=== PATIENT | female | born 1995 | race Caucasian/White ===

== ENCOUNTER 2019-08-24 10:32 | Emergency (ER) | payer OTHER ==
[~2019-08-24] VITALS: Ht 157.5 cm; Wt 63.3 kg
[2019-08-24 11:10] LABS: BASO % 0.5 % (0.0-1.0); EOS % 0.5 % (0.0-3.0); HEMATOCRIT 35.6 % (36.0-47.0); HEMOGLOBIN 12.2 g/dl (12.0-15.5); LYMPH # 1.4 10^3/uL (1.5-5.0); LYMPH % 31.2 % (24.0-44.0); MEAN CORPUSCULAR HEMOGLOBIN 31.2 pg (27.0-33.0); MEAN CORPUSCULAR HGB CONC 34.3 g/dl (32.0-36.5); MONO # 0.7 10^3/uL (0.0-0.8); MONO % 14.9 % (0.0-5.0); NEUTROPHILS # 2.3 10^3/uL (1.5-8.5); NEUTROPHILS % 52.7 % (36.0-66.0); PLATELET COUNT, AUTOMATED 200 10^3/uL (150-450); RED BLOOD COUNT 3.91 10^6/uL (4.00-5.40); WHITE BLOOD COUNT 4.4 10^3/uL (4.0-10.0)
[2019-08-24] MEDS ORDERED: B-122500 PO (11:21)
[2019-08-24] MEDS ORDERED: PEPC1TAB5 PO (11:21)
[2019-08-24] MEDS ORDERED: PRENTAB53 PO (11:21)
[2019-08-24] MEDS ORDERED: PREN29TA4 PO (11:21)
[2019-08-24] MEDS ORDERED: VITA200012 PO (11:21)
[2019-08-24] MEDS ORDERED: MULTCAP PO (11:23)
--- NOTE | 2019-08-24 11:44 | REP ---
Emergency first trimester obstetric sonography: History: Vaginal bleeding. 6 weeks 1 day by dates. Findings: Transabdominal scanning demonstrates a single living intrauterine gestation in a free-floating lie. The embryonic pole measures 9 mm in crown-rump length. This corresponds with a gestational age estimate of 6 weeks 6 days. heart rate is recorded at 124 beats per minute. A 1 cm fluid collection is seen adjacent to the sac consistent with a small subchorionic hemorrhage. There is a 2.6 cm corpus luteum cyst in the right ovary. Impression: Viable single intrauterine gestation at 6 weeks 6 days by crown-rump length. DOROTA by sonography April 12, 2020. There is a 1.0 cm subchorionic fluid collection consistent with a small hemorrhage. Electronically Signed by Kwame Andre MD 08/24/2019 12:41 P
[2019-08-24 12:00] LABS: ALBUMIN 3.7 GM/DL (3.2-5.2); ALT/SGPT 17 U/L (12-78); BILIRUBIN,TOTAL 0.5 MG/DL (0.2-1.0); BLOOD UREA NITROGEN 15 MG/DL (7-18); CALCIUM LEVEL 9.1 MG/DL (8.5-10.1); CARBON DIOXIDE LEVEL 25 MEQ/L (21-32); CHLORIDE LEVEL 108 MEQ/L (98-107); CREATININE FOR GFR 0.61 MG/DL (0.55-1.30); GLOMERULAR FILTRATION RATE > 60.0 (>60); GLUCOSE, FASTING 76 MG/DL (70-100); HCG, SERUM QUANTITATIVE 76994 MIU/ML; POTASSIUM SERUM 3.4 MEQ/L (3.5-5.1); SODIUM LEVEL 141 MEQ/L (136-145); TOTAL PROTEIN 6.6 GM/DL (6.4-8.2)
[2019-08-24 12:09] VITALS: BP 110/69
== END 2019-08-24 12:10 | disposition home or self-care (01) ==
LOC: M ED 10:32
DX: O20.8 Other hemorrhage in early pregnancy (principal); Z3A.01 Less than 8 weeks gestation of pregnancy; Z79.899 Other long term (current) drug therapy

== ENCOUNTER 2019-11-20 18:25 | Emergency (ER) | payer OTHER ==
[~2019-11-20] VITALS: Ht 157.5 cm; Wt 62.9 kg
[~2019-11-20 18:25] MED LIST: B-122500 PO; MULTCAP PO; PEPC1TAB5 PO; PREN29TA4 PO; PRENTAB53 PO; VITA200012 PO
[2019-11-20 18:26] VITALS: BP 120/67
[2019-11-20 19:26] LABS: APPEARANCE, URINE CLEAR (CLEAR); BACTERIA, URINE AUTO NEGATIVE (NEGATIVE); BILIRUBIN, URINE AUTO NEGATIVE (NEGATIVE); BLOOD, URINE BLOOD NEGATIVE (NEGATIVE); COLOR, URINE YELLOW (YELLOW); GLUCOSE, URINE (UA) AUTO NEGATIVE (NEGATIVE); KETONE, URINE AUTO NEGATIVE (NEGATIVE); LEUKOCYTE ESTERASE, URINE AUTO NEGATIVE (NEGATIVE); MUCUS, URINE SMALL (NEGATIVE); NITRITE, URINE AUTO NEGATIVE (NEGATIVE); PROTEIN, URINE AUTO NEGATIVE (NEGATIVE); RBC, URINE AUTO 0 /HPF (0-3); SPECIFIC GRAVITY URINE AUTO 1.024 (1.002-1.035); SQUAMOUS EPITHELIAL CELL UR AU 3 /HPF (0-6); WBC, URINE AUTO 1 /HPF (0-3)
== END 2019-11-20 20:42 | disposition left against medical advice (07) ==
LOC: M ED 18:25
DX: O23.592 Infection of other part of genital tract in pregnancy, second trimester (principal); Z3A.19 19 weeks gestation of pregnancy; O99.842 Bariatric surgery status complicating pregnancy, second trimester; Z79.899 Other long term (current) drug therapy

== ENCOUNTER 2019-11-21 20:58 | Emergency (ER) | payer OTHER ==
[~2019-11-21] VITALS: Ht 157.5 cm; Wt 62.1 kg
[2019-11-21 22:12] LABS: BASO % 0.2 % (0.0-1.0); EOS % 0.2 % (0.0-3.0); HEMATOCRIT 34.6 % (36.0-47.0); HEMOGLOBIN 11.8 g/dl (12.0-15.5); LYMPH # 1.8 10^3/uL (1.5-5.0); LYMPH % 20.8 % (24.0-44.0); MEAN CORPUSCULAR HEMOGLOBIN 32.2 pg (27.0-33.0); MEAN CORPUSCULAR HGB CONC 34.1 g/dl (32.0-36.5); MEAN CORPUSCULAR VOLUME 94.5 fl (80.0-96.0); MONO # 0.7 10^3/uL (0.0-0.8); MONO % 7.6 % (0.0-5.0); NEUTROPHILS # 6.2 10^3/uL (1.5-8.5); PLATELET COUNT, AUTOMATED 255 10^3/uL (150-450); RED BLOOD COUNT 3.66 10^6/uL (4.00-5.40); WHITE BLOOD COUNT 8.8 10^3/uL (4.0-10.0)
[2019-11-21 22:26] LABS: APPEARANCE, URINE HAZY (CLEAR); BACTERIA, URINE AUTO NEGATIVE (NEGATIVE); BILIRUBIN, URINE AUTO NEGATIVE (NEGATIVE); BLOOD, URINE BLOOD 3+ (NEGATIVE); COLOR, URINE YELLOW (YELLOW); GLUCOSE, URINE (UA) AUTO NEGATIVE (NEGATIVE); KETONE, URINE AUTO NEGATIVE (NEGATIVE); LEUKOCYTE ESTERASE, URINE AUTO TRACE (NEGATIVE); MUCUS, URINE SMALL (NEGATIVE); NITRITE, URINE AUTO NEGATIVE (NEGATIVE); PROTEIN, URINE AUTO NEGATIVE (NEGATIVE); RBC, URINE AUTO TNTC /HPF (0-3); SPECIFIC GRAVITY URINE AUTO 1.023 (1.002-1.035); SQUAMOUS EPITHELIAL CELL UR AU 0 /HPF (0-6); WBC, URINE AUTO 3 /HPF (0-3)
[2019-11-21 22:36] VITALS: BP 118/65
--- NOTE | 2019-11-21 22:45 | REPVR ---
PROCEDURE INFORMATION: Exam: US , Limited Exam date and time: 11/21/2019 10:24 PM Age: 24 years old Clinical indication: Other: Pelvic pain; Gestational age or lmp: 19; ; Additional info: Pelvic pain, vag bleeding, 19 wks TECHNIQUE: Imaging protocol: Real-time ultrasound of the maternal uterus with image documentation. Exam focused on the clinical indication. COMPARISON: No relevant prior studies available. FINDINGS: Gestation: Single intrauterine gestation. Heart rate: heart rate 136 bpm. Presentation: Transverse, head towards the maternal right positioning. Placenta: Fundal placenta. Amniotic fluid: Subjective normal amniotic fluid volume, sac appears to protrude into the vagina. MATERNAL: Cervix: Cervix is completely open. IMPRESSION: 1. Subjective normal amniotic fluid volume, sac appears to protrude into the vagina. 2. Cervix is completely open. Electronically signed by: Dallas Ventura On 11/21/2019 22:45:28 PM
== END 2019-11-21 22:52 | disposition admitted as inpatient to this hospital (09) ==
LOC: M ED 20:58
DX: O03.4 Incomplete spontaneous abortion without complication (principal); Z3A.19 19 weeks gestation of pregnancy

== ENCOUNTER 2019-11-21 22:53 | Outpatient (CLI) | payer OTHER ==
[~2019-11-21] VITALS: Ht 157.5 cm; Wt 64.0 kg
[2019-11-21 23:04] VITALS: BP 125/66
[2019-11-22] MEDS ORDERED: LACTATED RINGER'S 1000 ML IV ONE (00:15)
[2019-11-22] MEDS ORDERED: LR 1,000 ML IV SCH (00:15)
[2019-11-22 00:50] VITALS: BP 133/76
[2019-11-22] MEDS ORDERED: OXYTOCIN 30 UNITS IN 0.9% NaCl 500ML IV BAG (J2590) As Ordered ONE (00:53)
[2019-11-22] MEDS ORDERED: FENTANYL 2MCG/ML ROPIVACAINE 0.2% IN 0.9% NACL 100ML IVBAG As Ordered ONE (00:55)
[2019-11-22 01:29] LABS: HEMATOCRIT 32.6 % (36.0-47.0); HEMOGLOBIN 11.5 g/dl (12.0-15.5); MEAN CORPUSCULAR HEMOGLOBIN 32.6 pg (27.0-33.0); MEAN CORPUSCULAR HGB CONC 35.3 g/dl (32.0-36.5); MEAN CORPUSCULAR VOLUME 92.4 fl (80.0-96.0); PLATELET COUNT, AUTOMATED 221 10^3/uL (150-450); RED BLOOD COUNT 3.53 10^6/uL (4.00-5.40); WHITE BLOOD COUNT 11.9 10^3/uL (4.0-10.0)
[2019-11-22 02:02] VITALS: BP 108/60
[2019-11-22 02:17] VITALS: BP 109/67
[2019-11-22] MEDS ORDERED: ceFAZolin SOD 2 GM in IV 1 EA IV ONE (02:30)
[2019-11-22 02:32] VITALS: BP 109/62
[2019-11-22 02:47] VITALS: BP 98/55
[2019-11-22 03:02] VITALS: BP 91/55
[2019-11-22] MEDS ORDERED: OXYTOCIN DRIP 30 UNITS in IV 1 EA IV SCH (03:15)
--- NOTE | 2019-11-22 08:17 | HPE ---
DATE OF ADMISSION: 11/21/2019 This is a 24-year-old, 1, para 0, last menstrual period (LMP) 07/12/2019, expected date of confinement (EDC) 04/17/2020, at 19 weeks of gestation with a history of three days of discharge, yellowy and increasing mucus with some pain and contractions. She was seen in the emergency department (ED) on 11/20/2019, but declined assessment or examination. She came back bleeding to the ED. They called. It was quite obvious that she had a spontaneous rupture of membranes with an active labor at 19 weeks 0 days. A risk factor is she has had a Diane-en-Y gastric bypass in 2018. Varicella immune. She has asthma and she had chlamydia in 2016. Labs are B+. HIV negative. Hepatitis negative. RPR negative. Rubella immune. Varicella nonimmune. Urine negative. Gonorrhea and chlamydia negative. Hemoglobin A1c is 4.8. Blood pressure is 125/66, respirations 18, pulse 103, and temperature 98.0. On examination, she appears distressed. She has vaginal bleeding down her legs. A sterile speculum examination after spontaneous rupture of membranes at 10:30 indicated double footling breech through the vagina with moderate amount of amniotic fluid. heart was present prior to the speculum examination. Ultrasound indicated a completely dilated cervix with supposedly at that time a transverse lie with amniotic fluid intact; however, it was documented she ruptured her membranes prior to coming up to labor and delivery. Our plan of management is to hydrate the patient, two IV lines, hemorrhage risk of 2, and anticipate spontaneous delivery. Uncertain as to the spontaneity delivery of the placenta. The patient is nothing by mouth (n.p.o.). She was given a bolus of IV fluids and orders were entered. We spent considerable time discussing the reason for incompetent cervix and moving forward the plan of care for the next . The patient and expressed understanding, deep remorse and crying going on in the room. We will try and comfort them as much as we can.
== END 2019-11-22 06:18 | disposition home or self-care (01) ==
LOC: M LDO 22:53
PROVIDERS: ATTEND Obstetrics & Gynecology
DX: O03.9 Complete or unspecified spontaneous abortion without complication (principal); Z3A.19 19 weeks gestation of pregnancy
CPT/HCPCS: 36415; 76815; 80047; 81001; 84702; 85025; 85027; 86780; 86850; 86900; 86901; 88305; 88309; 96361; 96365; 96366; 96368; 99282; G0463; J0690; J2590

== ENCOUNTER 2020-01-18 16:19 | Emergency (ER) | payer OTHER ==
[~2020-01-18] VITALS: Ht 157.5 cm; Wt 62.4 kg
[2020-01-18 18:15] VITALS: BP 126/72
--- NOTE | 2020-02-09 19:28 | ECGEPIP ---
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
== END 2020-01-18 18:18 | disposition home or self-care (01) ==
LOC: M ED 16:19
DX: F41.9 Anxiety disorder, unspecified (principal); F17.200 Nicotine dependence, unspecified, uncomplicated; Z79.899 Other long term (current) drug therapy

== ENCOUNTER → 2020-03-11 | Outpatient (CLI) | payer OTHER ==
--- NOTE | 2020-03-11 14:08 | REP ---
INDICATION: POSSIBLE PLACENTA PREVIA AND CERVICAL LENGTH FILE ROOM. Eleven weeks gestation, DOROTA 30 Sep 2020. History of cervical insufficiency. COMPARISON: None. TECHNIQUE: Transabdominal and transvaginal scanning or performed. FINDINGS: A living single intrauterine gestation is seen in the free-floating lie. [place]-rump length of the embryonic pole is 34 mm. This corresponds with a 10 week 2 day gestational age estimate. heart rate is recorded at 168 beats per minute. The yolk sac is visualized. Left lateral placenta is seen grade 0 without evidence of placenta previa. Closed cervical length as measured transvaginally at 2.7 cm. No evidence of funneling. IMPRESSION: Viable single intrauterine gestation at 10 weeks 2 days by crown-rump length. DOROTA by sonography October 05, 2020. 2.7 cm closed cervical length no funneling seen on transvaginal scanning. No evidence of previa. <Electronically signed by Dickson Andre > 03/11/20 [id number]
== END ==
LOC: M RAD 12:50
PROVIDERS: ATTEND Obstetrics & Gynecology
DX: Z3A.11 11 weeks gestation of pregnancy (principal)

== ENCOUNTER 2020-03-21 14:55 | Emergency (ER) | payer OTHER ==
[~2020-03-21] VITALS: Ht 157.5 cm; Wt 62.4 kg
[2020-03-21 14:56] VITALS: BP 105/61
[2020-03-23] MEDS ORDERED: MULTTAB20 PO (11:28)
== END 2020-03-21 16:32 | disposition home or self-care (01) ==
LOC: M ED 14:55
DX: Z20.828 Contact with and (suspected) exposure to other viral communicable diseases (principal); O99.511 Diseases of the respiratory system complicating pregnancy, first trimester; J45.909 Unspecified asthma, uncomplicated; O99.841 Bariatric surgery status complicating pregnancy, first trimester; Z3A.12 12 weeks gestation of pregnancy
CPT/HCPCS: 99283; U0003

== ENCOUNTER 2020-03-30 08:48 | Day surgery (SDC) | payer OTHER ==
[~2020-03-30] VITALS: Ht 157.5 cm; Wt 61.2 kg
[~2020-03-30 08:48] MED LIST changes: +LIDOCAINE 1% MDV 20ML VIAL SQ PRN; +LR 1,000 ML IV ONE; +MULTTAB20 PO
[2020-03-30 09:36] LABS: HEMATOCRIT 34.1 % (36.0-47.0); HEMOGLOBIN 11.3 g/dl (12.0-15.5); MEAN CORPUSCULAR HEMOGLOBIN 29.8 pg (27.0-33.0); MEAN CORPUSCULAR HGB CONC 33.1 g/dl (32.0-36.5); PLATELET COUNT, AUTOMATED 210 10^3/uL (150-450); RED BLOOD COUNT 3.79 10^6/uL (4.00-5.40)
[2020-03-30] MEDS ORDERED: LIDOCAINE 2% 100MG/5ML SDV (FOR ANES.) As Ordered ONE (09:48)
[2020-03-30] MEDS ORDERED: propofoL 200 MG/20 ML VIAL As Ordered ONE (09:48)
[2020-03-30] MEDS ORDERED: fentaNYL 100 MCG/2 ML INJECTION (J3010) As Ordered ONE (09:49)
[2020-03-30] MEDS ORDERED: MIDAZOLAM INJ 2MG/2ML VIAL (J2250 PER 1MG) As Ordered ONE (09:49)
[2020-03-30 10:25] LABS: APPEARANCE, URINE CLOUDY (CLEAR); BACTERIA, URINE AUTO 1+ (NEGATIVE); BILIRUBIN, URINE AUTO NEGATIVE (NEGATIVE); BLOOD, URINE BLOOD NEGATIVE (NEGATIVE); COLOR, URINE YELLOW (YELLOW); GLUCOSE, URINE (UA) AUTO NEGATIVE (NEGATIVE); KETONE, URINE AUTO 1+ mg/dL (NEGATIVE); LEUKOCYTE ESTERASE, URINE AUTO TRACE (NEGATIVE); MUCUS, URINE SMALL (NEGATIVE); NITRITE, URINE AUTO NEGATIVE (NEGATIVE); PROTEIN, URINE AUTO NEGATIVE (NEGATIVE); RBC, URINE AUTO 1 /HPF (0-3); SQUAMOUS EPITHELIAL CELL UR AU 27 /HPF (0-6); WBC, URINE AUTO 5 /HPF (0-3)
[2020-03-30] MEDS ORDERED: SILVER NITRATE APPLICATOR As Ordered ONE (12:38)
[2020-03-30] MEDS ORDERED: ACETAMINOPHEN 1000MG 100ML IV BTL (OFIRMEV) (J0131 PER 10MG) As Ordered ONE (12:40)
[2020-03-30] MEDS ORDERED: CHLOROPROCAINE PRES. FREE 3% 20ML VIAL As Ordered ONE (12:40)
[2020-03-30] MEDS ORDERED: ONDANSETRON 4MG/2ML VIAL IV PRN (14:00)
[2020-03-30] MEDS ORDERED: fentaNYL 100 MCG/2 ML INJECTION (J3010) IV PRN (14:00)
[2020-03-30] MEDS ORDERED: oxyCODONE 5MG TAB PO PRN (14:00)
[2020-03-30] MEDS ORDERED: LR 1,000 ML IV SCH (14:00)
[2020-03-30 16:15] VITALS: BP 115/71
--- NOTE | 2020-04-01 09:46 | ROOPDOC ---
[facility] Report Of Operation Report of Operation DATE OF PROCEDURE: 03/30/20 PREPROCEDURE DIAGNOSES: 1.) History of cervical incompetence 2.) 13 weeks gestation POSTPROCEDURE DIAGNOSES: 1.) History of cervical incompetence 2.) 13 weeks gestation PROCEDURE: Prophylactic Cole Cerclage SURGEON: Levy Mckeon D.O. HORSESHOER: Austin Heath MD ANESTHESIA: Spinal. ESTIMATED BLOOD LOSS: Approximately 5mL. COMPLICATIONS: None REMARKS: FHR 145bpm via doptones prior to start of surgery, FHR 150bpm via TAUS post-operatively with CL 3.6cm with Cerclage 2cm from external cervical os. DESCRIPTION OF PROCEDURE: The indication, risks, benefits, and alternatives of the procedure were reviewed with the patient and informed consent was obtained. The patient was taken to the operating room where spinal anesthesia was placed without difficulty. The patient was then placed in the high-lithotomy position using candy-cane stirrups. The patient was then prepped and draped in a sterile fashion. The bladder had been emptied by spontaneous void prior to moving to the operating room. A weighted speculum and a jimenez retractor was then placed into the vagina. The cervix was identified and grasped with ring forceps. A 0-Proline suture was then inserted at the 12-oclock position of the cervix and brought out around the 10-oclock position. The suture reinserted at the 10-oclock position and out at the 8-oclock position. This same maneuver was circumferentially creating a purse-string suture. The suture was then tied at the 12-oclock position over a Vipul Hamilton and tightened around the cervical canal. Eight successive knots were placed with a 4cm tail. At the completion of the case all instruments were removed from the vagina. An ultrasound was performed and revealed a cervical length of _2__cm distal to the cerclage without funneling. The patient tolerated the procedure well. Sponge, lap, and needle counts were correct times two at the completion of the case. The patient was taken to the recovery room in stable condition. heart rate following the procedure was _150__bpm. LEVY MCKEON DO Mar 30, 2020 15:42
== END 2020-03-30 16:20 | disposition home or self-care (01) ==
LOC: M SDC 08:48
DX: O34.31 Maternal care for cervical incompetence, first trimester (principal); F41.9 Anxiety disorder, unspecified; J45.20 Mild intermittent asthma, uncomplicated; K59.00 Constipation, unspecified; R07.9 Chest pain, unspecified; R51.9 Headache, unspecified; Z3A.13 13 weeks gestation of pregnancy; Z98.84 Bariatric surgery status; Z87.891 Personal history of nicotine dependence
CPT/HCPCS: 36415; 59320; 81001; 85027; 86850; 86900; 86901; J0131; J0690; J2400

== ENCOUNTER 2020-05-07 12:23 | Emergency (ER) | payer OTHER ==
[~2020-05-07] VITALS: Ht 157.5 cm; Wt 68.9 kg
[~2020-05-07 12:23] MED LIST changes: -LIDOCAINE 1% MDV 20ML VIAL SQ PRN; -LR 1,000 ML IV ONE
[2020-05-07 12:24] VITALS: BP 101/56
== END 2020-05-07 13:32 | disposition home or self-care (01) ==
LOC: M ED 12:23
DX: O26.899 Other specified pregnancy related conditions, unspecified trimester (principal); Z3A.19 19 weeks gestation of pregnancy; O99.512 Diseases of the respiratory system complicating pregnancy, second trimester; O99.842 Bariatric surgery status complicating pregnancy, second trimester; Z79.899 Other long term (current) drug therapy

== ENCOUNTER 2020-06-09 22:33 | Observation (INO) | payer OTHER ==
[~2020-06-09] VITALS: Ht 157.5 cm; Wt 67.7 kg
[2020-06-09 23:13] VITALS: BP 102/61
[2020-06-10] VITALS (7 sets, daily range): BP systolic 97–126; BP diastolic 54–82
--- NOTE | 2020-06-10 02:35 | REPVR ---
PROCEDURE INFORMATION: Exam: US , Transvaginal Exam date and time: 06/10/2020 1:54 AM Age: 25 years old Clinical indication: Lmp or gestational age (in weeks): 24; Antepartum complications; Other: Cerclage failure; ; Prior surgery; Surgery date: 1-6 months; Surgery type: Attempted cerclage placement; Additional info: 24+0wks with cerclage failure TECHNIQUE: Imaging protocol: Real-time transvaginal obstetrical ultrasound of the maternal pelvis and a first trimester with image documentation. Transvaginal imaging was used for better evaluation of the fetus, adnexa, and/or cervix. COMPARISON: Obs. Limited, [facility] 2019-11-21 22:17 FINDINGS: Gestation: Intrauterine gestation. MATERNAL: Cervix: 3.7 cm cervix, with pressure measuring 4.1 cm. IMPRESSION: 3.7 cm cervix, with pressure measuring 4.1 cm. Electronically signed by: Dallas Ventura On 06/10/2020 02:34:59 AM
--- NOTE | 2020-06-10 04:28 | IPNPDOC ---
Text Note Date of Service The patient was seen on 06/09/20. NOTE HPI: Sathish is a 25yo at 23+6wks by LMP c/w 6w0d U/S presenting to L&D triage for concern of spotting VB when wiping and right-sided pelvic pain/vaginal pain that started a few hours prior to presentation. She reports good FM. Denies LOF. She had OB appointment earlier in the day notable for concern of Y-shaped funneling to the level of the cerclage with cervical length 2.8cm ROS: Denies fevers/chills, SOB, chest pain, n/v/d, dysuria OB Hx: G1: SAB at 19wks with diagnosis of cervical incompetence G2: current OB PROBLEM LIST: History of cervical insufficiency - prophylactic cerclage placed on 30MAR2020 Concern for IUGR on anatomy scan - level II anatomy scan at [facility] scheduled for [id number] H/O bariatric surgery GBS positive (urine culture at NOB visit) Varicella non-immune NKDA PMHx: -Anxiety/Panic disorder -Constipation -Obesity s/p bariatric surgery -Asthma (mild-intermittent) PSHx: Bariatric surgery T&A SHx: Denies smoking, ETOH, illicit drugs Reports feeling safe in the home FMHx: Asthma (mother and sister) MEDS: PNV daily Folic acid B12 Pepcid B3 vitamin supplementation [employer] Hx: Chlamydia infection 2014 No h/o abnml pap Regular menses prior to Vitals: normotensive, afebrile FHR: 145bpm [place]: quiet PE: GEN: well-appearing, in NAD, conversing in full sentences HEENT: NC/AT, airway patent and self-maintained RESP: No cough, no exaggerated respiratory effort appreciated CARDS: well-perfused, no edema, normal HR ABD: excess skin fold pannus from weight loss Fundus: nontender, S=D : NEFG, cervix noted to have cerclage cutting into the anterior aspect of cervix by the knot with a 1cm flap of the anterior cervix noted. Minimal bleeding appreciated. Cervical os appeared closed. No abnml vaginal discharge. While attempting to examine cerclage and remove Vipul [place] to determine if cause of laceration to cervix, spontaneous removal of cerclage occurred. No cerv ical dilation appreciated visibly. Digital SVE not performed. Silver nitrate applied to cervix with hemostasis achieved. Bedside TAUS: breech presentation, anterior placenta, +FM, +FCA at 145bpm, cervical length noted to be 3.5cm with no dynamic changes. Ext: no edema, no calf tenderness LABS: B+, antibody negative HIV negative HepB S Ag negative RPR nonreactive Rubella Immune Varicella Nonimmune Pap normal in GC/CT negative HCT/PLTs 34.1/210 Urine culture: GBS positive w/ clinda resistance Missed window for QUAD, did not complete M21 to date RADS: Anatomy scan on 13MAY2020 concerning for IUGR (BPD/HC <2nd percentile, FL 7th percentile, AC 13th percentile) and incomplete visualization of aortic arch, facial profile, and sacral spine Transvaginal U/S 06/10/2020 revealed in cephalic presentation with CL 3.7cm. CONSULTATION: Spoke with Dr. Zimmerman with PNC at [facility]. In discussion, decision made to observe at [facility] at this time with plan to give BTMZ x2 doses q24h and repeat CL in 24 hours. If CL stable, will start on vaginal progesterone and manage expectantly outpatient with close follow-up. Patient already scheduled to see PNC on [id number]. If CL shortens, will start Magnesium and GBS ppx and transfer to [place] for continued inpatient observation given gestational age for NICU availability. A/P: 25yo at 23+6wks presenting for spotting vaginal bleeding and pelvic/vaginal pain with exam notable for cerclage failure due to cutting into cervix. This is an acute change from clinic appointment earlier today. Cerclage removed due to cervical injury and concern for failure. Unclear if vaginal trauma or cervical funneling to cerclage occurred and cervix has now contracted down after stimulation on examination. -Will admit to observation status at this time -Regular diet as tolerated -Bedrest with bathroom privileges -Monitor vitals q4h with doptones daily -Complete BTMZ 12mg IM q24h x2 doses -Repeat cervical length in 24 hours. Patient counseled and amenable to plan of care at this time. All questions answered. Med rec done. VS,Fishbone, I+O VS, Fishbone, I+O Vital Signs Date Time Temp Pulse Resp B/P (MAP) Pulse Ox O2 Delivery O2 Flow Rate FiO2 06/09/20 23:13 97.5 79 16 102/61 (75) Room Air LEVY GREWAL DO Jun 10, 2020 04:28
[2020-06-10] MEDS ORDERED: ACETAMINOPHEN 500 MG TAB PO PRN (16:30)
--- NOTE | 2020-06-10 19:39 | IPNPDOC ---
Text Note Date of Service The patient was seen on 06/10/20. NOTE Ms. Painting is a 25yo at 24+0 with a cervical laceration from her cerclage that was placed on . The cerclage was removed on due to the laceration. The cerclage was placed for history indication. A CL was performed after removal and it was 3.7cm. I was called by RN and notified that the patient is reporting pain, she states she has not had pain today until now. The patient explained that she has no pain unless she moves. When she shifts position she has a deep pelvic pain. She has no cramps or contractions. She denied VB or LOF. She denied n/v/d, cp, sob, paul, visual changes, f/c, discharge, urinary sx. OB PROBLEM LIST: History of cervical insufficiency - prophylactic cerclage placed on 30MAR2020 Concern for IUGR on anatomy scan - level II anatomy scan at [facility] scheduled for [id number] H/O bariatric surgery GBS positive (urine culture at NOB visit) Varicella non-immune EXAM AAOx3 NAD no increased WOB non-tachycardic abd gravid, non-tender sterile spec with visibly closed cervix, laceration noted at 12 o clock and is hemostatic, no purulence normal affect and insight no pedel edema RADS: Anatomy scan on 13MAY2020 concerning for IUGR (BPD/HC <2nd percentile, FL 7th percentile, AC 13th percentile) and incomplete visualization of aortic arch, facial profile, and sacral spine Transvaginal U/S 06/10/2020 revealed infant in cephalic presentation with CL 3.7cm. CONSULTATION: Spoke with Dr. Zimmerman with PNC at [facility]. In discussion, decision made to observe at [facility] at this time with plan to give BTMZ x2 doses q24h and repeat CL in 24 hours. If CL stable, will start on vaginal progesterone and manage expectantly outpatient with close follow-up. Patient already scheduled to see PNC on [id number]. If CL shortens, will start Magnesium and GBS ppx and transfer to [place] for continued inpatient observation given gestational age for NICU availability. ASSESSMENT Ms. Painting is a 25yo at 24+0 with a cervical laceration from her cerclage that was placed on . The cerclage was removed on due to the laceration. The cerclage was placed for history indication. A CL was performed after removal and it was 3.7cm. She is complaining of pain only with motion which is to be expected after cervical laceration and cerclage removal. Her cervix is visibly closed. PLAN - patient to notify if she has persistent pain, worsening of her pain, or other concerning symptoms - plan for TVUS in AM to monitor CL as planned with vaginal progesterone as outpatient - if CL shortens or concern for labor will start Mg/GBS PPX and transfer to [place] - will get BMTZ #2 tonight VS,Fishbone, I+O VS, Fishbone, I+O Vital Signs Date Time Temp Pulse Resp B/P (MAP) Pulse Ox O2 Delivery O2 Flow Rate FiO2 06/10/20 18:00 98.6 80 17 105/58 (74) 99 Room Air YAMINI BREEN DO Jun 10, 2020 19:39
[2020-06-11 02:00] VITALS: BP 88/52
[2020-06-11 05:50] VITALS: BP 92/51
[2020-06-11 10:00] VITALS: BP 102/62
--- NOTE | 2020-06-11 10:11 | REP ---
INDICATION: 24w1d in need of repeat cervical length s/p cerclage removal. COMPARISON: Comparison is made with the transvaginal imaging done the previous day 10 June 2020 with the cervical cerclage in place.. TECHNIQUE: Transabdominal and transvaginal scanning or performed. FINDINGS: Closed cervical length is 3.4 cm with and without fundal pressure. No funneling is seen. heart rate is recorded during this exam at 163 beats per minute. Limited study. IMPRESSION: Closed cervical length today 3.4 cm without funneling. <Electronically signed by Dickson Andre > 06/11/20 [id number]
[2020-06-11 13:07] VITALS: BP 121/62
--- NOTE | 2020-06-13 15:55 | IPNPDOC ---
Text Note Date of Service The patient was seen on 06/11/20. NOTE Sathish reports she had pain yesterday but it has since resolved. She reports the bleeding has resolved. She reports good FM. Denies LOF. She is voiding spontaneously and having normal bowel movements, tolerating regular diet, and ambulating without difficulty. Vitals: normotensive, afebrile FHR: 145bpm [place]: quiet PE: GEN: well-appearing, in NAD, conversing in full sentences HEENT: NC/AT, airway patent and self-maintained RESP: No cough, no exaggerated respiratory effort appreciated CARDS: well-perfused, no edema, normal HR ABD: excess skin fold pannus from weight loss Fundus: nontender, S=D : deferred due to no current symptoms Ext: no edema, no calf tenderness RADS: Anatomy scan on 13MAY2020 concerning for IUGR (BPD/HC <2nd percentile, FL 7th percentile, AC 13th percentile) and incomplete visualization of aortic arch, facial profile, and sacral spine Transvaginal U/S 06/10/2020 revealed infant in cephalic presentation with CL 3.7cm Transvaginal U/S on 06/11/2020 revealed CL 3.4cm with no funneling or dynamic changes. A/P: 25yo at 24+1wks admitted to observation after presenting for spotting vaginal bleeding and pelvic/vaginal pain with exam notable for cerclage failure due to cutting into cervix. Cerclage removed due to cervical injury and concern for failure though most likely due to cervical trauma. Repeat TVUS revealed stable cervical length and patient asymptomatic. Patient has completed BTMZ series for lung maturity. -Disposition home at this time. -Regular diet as tolerated -Bedrest with bathroom privileges - patient strongly counseled on pelvic rest as I am suspicious nonadherence is the etiology of her cervical trauma, patient counseled on lifting restrictions to <15lbs -Patient to greens picker prescription for vaginal progesterone with plan to continue until 36 weeks. -Patient to f/u as scheduled for PNC appointment on [id number] and then with myself the following week for close outpatient observation -Patient counseled on strict PTL precautions Patient counseled and amenable to plan of care at this time. All questions answered. Med rec done. VS,Nicke, I+O VS, Fishbone, I+O Vital Signs Date Time Temp Pulse Resp B/P (MAP) Pulse Ox O2 Delivery O2 Flow Rate FiO2 06/11/20 13:07 92 20 121/62 (81) 06/11/20 10:00 98.8 98 Room Air LEVY GREWAL DO Jun 13, 2020 15:55
--- OUTSIDE RECORDS SUMMARY | 2020-06-18 07:41 | CCD ---
Author Author [facility] Organization [facility] Address Unknown Phone Unavailable Care Team Providers Care Market President Name Role Phone Rupinder Rice Unavailable Unavailable AlisonchRupinder malloy Unavailable Unavailable AlisonchRupinder malloy PA Unavailable Unavailable BuschRupinder malloy PA Unavailable Unavailable BuschRupinder malloy PA Unavailable Unavailable AlisonchRupinder malloy PA Unavailable Unavailable Alisonchgama F Bárbara PA Unavailable Unavailable Alisonchgama F Bárbara PA Unavailable Unavailable Alisonchgama F Bárbara PA Unavailable Unavailable AlisonchRupinder malloy PA Unavailable Unavailable AlisonchRupinder malloy PA Unavailable Unavailable Alisonchgama F Bárbara PA Unavailable Unavailable Alisonchgama F Bárbara PA Unavailable Unavailable Alisonchgama F Bárbara PA Unavailable Unavailable AlisonchRupinder malloy PA Unavailable Unavailable Alisonchgama F Bárbara PA Unavailable Unavailable Alisonchmann, F Bárbara PA Unavailable Unavailable Buschmann, F Bárbara PA Unavailable Unavailable Buschmann, F Bárbara PA Unavailable Unavailable Buschmann, F Bárbara PA Unavailable Unavailable Buschmann, F Bárbara PA Unavailable Unavailable Buschmann, F Bárbara PA Unavailable Unavailable Buschmann, F Bárbara PA Unavailable Unavailable Buschmann, F Bárbara PA Unavailable Unavailable Buschmann, F Bárbara PA Unavailable Unavailable Buschmann, F Bárbara PA Unavailable Unavailable Buschmann, F Bárbara PA Unavailable Unavailable Buschmann, F Bárbara PA Unavailable Unavailable Buschmann, F Bárbara PA Unavailable Unavailable Buschmann, F Bárbara PA Unavailable Unavailable ANTECOL, Margarita WISE MD Unavailable Unavailable ANTECOL, Margarita WISE MD Unavailable Unavailable ANTECOL, Margarita WISE MD Unavailable Unavailable ANTECOL, Margarita WISE MD Unavailable Unavailable ANTECOL, Margarita WISE MD Unavailable Unavailable ANTECOL, Margarita WISE MD Unavailable Unavailable ANTECOL, Margarita WISE MD Unavailable Unavailable ANTECOL, Margarita WISE MD Unavailable Unavailable ANTECOL, Margarita WISE MD Unavailable Unavailable ANTECOL, Margarita WISE MD Unavailable Unavailable ANTECOL, Margarita WISE MD Unavailable Unavailable ANTECOL, Margarita WISE MD Unavailable Unavailable ANTECOL, Margarita WISE MD Unavailable Unavailable ANTECOL, Margarita WISE MD Unavailable Unavailable ANTECOL, Margarita WISE MD Unavailable Unavailable ANTECOL, Margarita WISE MD Unavailable Unavailable ANTECOL, Margarita WISE MD Unavailable Unavailable ANTECOL, Margarita WISE MD Unavailable Unavailable ANTECOL, Margarita WISE MD Unavailable Unavailable ANTECOL, Margarita WISE MD Unavailable Unavailable ANTECOL, Margarita WISE MD Unavailable Unavailable ANTECOL, Margarita WISE MD Unavailable Unavailable ANTECOL, Margarita WISE MD Unavailable Unavailable ANTECOL, Margarita WISE MD Unavailable Unavailable ANTECOL, Margarita WISE MD Unavailable Unavailable ANTECOL, Margarita WISE MD Unavailable Unavailable ANTECOL, Margarita WISE MD Unavailable Unavailable ANTECOL, Margarita WISE MD Unavailable Unavailable ANTECOL, Margarita WISE MD Unavailable Unavailable ANTECOL, Margarita WISE MD Unavailable Unavailable ANTECOL, Margarita WISE MD Unavailable Unavailable ANTECOL, Margarita WISE MD Unavailable Unavailable ANTECOL, Margarita WISE MD Unavailable Unavailable ANTECOL, Margarita WISE MD Unavailable Unavailable ANTECOL, Margarita WISE MD Unavailable Unavailable ANTECOL, Margarita WISE MD Unavailable Unavailable ANTECOL, Margarita WISE MD Unavailable Unavailable ANTECOL, Margarita WISE MD Unavailable Unavailable ANTECOL, Margarita WISE MD Unavailable Unavailable ANTECOL, Margarita WISE MD Unavailable Unavailable ANTECOL, Margarita WISE MD Unavailable Unavailable ANTECOL, Margarita WISE MD Unavailable Unavailable ANTECOL, Margarita WISE MD Unavailable Unavailable ANTECOL, Margarita WISE MD Unavailable Unavailable ANTECOL, Margarita WISE MD Unavailable Unavailable ANTECOL, Margarita WISE MD Unavailable Unavailable ANTECOL, Margarita WISE MD Unavailable Unavailable ANTECOL, Margarita WISE MD Unavailable Unavailable ANTECOL, Margarita WISE MD Unavailable Unavailable ANTECOL, Margarita WISE MD Unavailable Unavailable ANTECOL, Margarita WISE MD Unavailable Unavailable ANTECOL, Margarita WISE MD Unavailable Unavailable ANTECOL, Margarita WISE MD Unavailable Unavailable ANTECOL, Margarita WISE MD Unavailable Unavailable ANTECOL, Margarita WISE MD Unavailable Unavailable FINOCCHIARO, S NICHOLE DO Unavailable Unavailable FINOCCHIARO, S NICHOLE DO Unavailable Unavailable FINOCCHIARO, S NICHOLE DO Unavailable Unavailable FINOCCHIARO, S NICHOLE DO Unavailable Unavailable FINOCCHIARO, S NICHOLE DO Unavailable Unavailable FINOCCHIARO, S NICHOLE DO Unavailable Unavailable FINOCCHIARO, S NICHOLE DO Unavailable Unavailable FINOCCHIARO, S NICHOLE DO Unavailable Unavailable FINOCCHIARO, S NICHOLE DO Unavailable Unavailable FINOCCHIARO, S NICHOLE DO Unavailable Unavailable FINOCCHIARO, S NICHOLE DO Unavailable Unavailable FINOCCHIARO, S NICHOLE DO Unavailable Unavailable FINOCCHIARO, S NICHOLE DO Unavailable Unavailable FINOCCHIARO, S NICHOLE DO Unavailable Unavailable FINOCCHIARO, S NICHOLE DO Unavailable Unavailable FINOCCHIARO, S NICHOLE DO Unavailable Unavailable FINOCCHIARO, S NICHOLE DO Unavailable Unavailable FINOCCHIARO, S NICHOLE DO Unavailable Unavailable FINOCCHIARO, S NICHOLE DO Unavailable Unavailable FINOCCHIARO, S NICHOLE DO Unavailable Unavailable FINOCCHIARO, S NICHOLE DO Unavailable Unavailable FINOCCHIARO, S NICHOLE DO Unavailable Unavailable FINOCCHIARO, S NICHOLE DO Unavailable Unavailable FINOCCHIARO, S NICHOLE DO Unavailable Unavailable FINOCCHIARO, S NICHOLE DO Unavailable Unavailable FINOCCHIARO, S NICHOLE DO Unavailable Unavailable FINOCCHIARO, S NICHOLE DO Unavailable Unavailable FINOCCHIARO, S NICHOLE DO Unavailable Unavailable FINOCCHIARO, S NICHOLE DO Unavailable Unavailable FINOCCHIARO, S NICHOLE DO Unavailable Unavailable FINOCCHIARO, S NICHOLE DO Unavailable Unavailable FINOCCHIARO, S NICHOLE DO Unavailable Unavailable FINOCCHIARO, S NICHOLE DO Unavailable Unavailable FINOCCHIARO, S NICHOLE DO Unavailable Unavailable FINOCCHIARO, S NICHOLE DO Unavailable Unavailable FINOCCHIARO, S NICHOLE DO Unavailable Unavailable FINOCCHIARO, S NICHOLE DO Unavailable Unavailable FINOCCHIARO, S NICHOLE DO Unavailable Unavailable FINOCCHIARO, S NICHOLE DO Unavailable Unavailable FINOCCHIARO, S NICHOLE DO Unavailable Unavailable FINOCCHIARO, S NICHOLE DO Unavailable Unavailable FINOCCHIARO, S NICHOLE DO Unavailable Unavailable FINOCCHIARO, S NICHOLE DO Unavailable Unavailable FINOCCHIARO, S NICHOLE DO Unavailable Unavailable FINOCCHIARO, S NICHOLE DO Unavailable Unavailable FINOCCHIARO, S NICHOLE DO Unavailable Unavailable FINOCCHIARO, S NICHOLE DO Unavailable Unavailable FINOCCHIARO, S NICHOLE DO Unavailable Unavailable FINOCCHIARO, S NICHOLE DO Unavailable Unavailable FINOCCHIARO, S NICHOLE DO Unavailable Unavailable FINOCCHIARO, S NICHOLE DO Unavailable Unavailable FINOCCHIARO, S NICHOLE DO Unavailable Unavailable FINOCCHIARO, S NICHOLE DO Unavailable Unavailable FINOCCHIARO, S NICHOLE DO Unavailable Unavailable FINOCCHIARO, S NICHOLE DO Unavailable Unavailable FINOCCHIARO, S NICHOLE DO Unavailable Unavailable FINOCCHIARO, S NICHOLE DO Unavailable Unavailable FINOCCHIARO, S NICHOLE DO Unavailable Unavailable FINOCCHIARO, S NICHOLE DO Unavailable Unavailable FINOCCHIARO, S NICHOLE DO Unavailable Unavailable FINOCCHIARO, S NICHOLE DO Unavailable Unavailable FINOCCHIARO, S NICHOLE DO Unavailable Unavailable FINOCCHIARO, S NICHOLE DO Unavailable Unavailable FINOCCHIARO, S NICHOLE DO Unavailable Unavailable FINOCCHIARO, S NICHOLE DO Unavailable Unavailable FINOCCHIARO, S NICHOLE DO Unavailable Unavailable FINOCCHIARO, S NICHOLE DO Unavailable Unavailable FINOCCHIARO, S NICHOLE DO Unavailable Unavailable FINOCCHIARO, S NICHOLE DO Unavailable Unavailable NOSOVITCH Jairo PEREIRA MD Unavailable Unavailable NOSOVITCH Jairo PEREIRA MD Unavailable Unavailable NOSOVITCH Jairo PEREIRA MD Unavailable Unavailable NOSOVITCH Jairo PEREIRA MD Unavailable Unavailable NOSOVITCH Jairo PEREIRA MD Unavailable Unavailable NOSOVITCH Jairo PEREIRA MD Unavailable Unavailable NOSOVITCH Jairo PEREIAR MD Unavailable Unavailable NOSOVITCH Jairo PEREIRA MD Unavailable Unavailable NOSOVITCH Jairo PEREIRA MD Unavailable Unavailable NOSOVITCH Jairo PEREIRA MD Unavailable Unavailable NOSOVITCH Jairo PEREIRA MD Unavailable Unavailable NOSOVITCH Jairo PEREIRA MD Unavailable Unavailable NOSOVITCH Jairo PEREIRA MD Unavailable Unavailable NOSOVITCH Jairo PEREIRA MD Unavailable Unavailable NOSOVITCH Jairo PEREIRA MD Unavailable Unavailable NOSOVITCH Jairo PEREIRA MD Unavailable Unavailable NOSOVITCH Jairo PEREIRA MD Unavailable Unavailable NOSOVITCH JR, T GRISELDA MD Unavailable Unavailable NOSOVITCH Jairo PEREIRA MD Unavailable Unavailable NOSOVITCH Jairo PEREIRA MD Unavailable Unavailable NOSOVITCH Jairo PEREIRA MD Unavailable Unavailable NOSOVITCH Jairo PEREIRA MD Unavailable Unavailable NOSOVITCH Jairo PEREIRA MD Unavailable Unavailable NOSOVITCH Jairo PEREIRA MD Unavailable Unavailable NOSOVITCH Jairo PEREIRA MD Unavailable Unavailable NOSOVITCH Jairo PEREIRA MD Unavailable Unavailable NOSOVITCH Jairo PEREIRA MD Unavailable Unavailable NOSOVITCH Jairo PEREIRA MD Unavailable Unavailable GlendaleМария ellis MD Unavailable Unavailable GlendaleМария MD Unavailable Unavailable GlendaleМария MD Unavailable Unavailable Мария Boyce MD Unavailable Unavailable GlendaleМария ellis MD Unavailable Unavailable Мария Boyce MD Unavailable Unavailable GlendaleМария MD Unavailable Unavailable Мария Boyce MD Unavailable Unavailable Мария Boyce MD Unavailable Unavailable GlendaleМария MD Unavailable Unavailable GlendaleМария MD Unavailable Unavailable GlendaleМария MD Unavailable Unavailable Мария Boyce MD Unavailable Unavailable GlendaleМария MD Unavailable Unavailable Мария Boyce MD Unavailable Unavailable Мария Boyce MD Unavailable Unavailable Мария Boyce MD Unavailable Unavailable Мария Boyce MD Unavailable Unavailable Мария Boyce MD Unavailable Unavailable Мария Boyce MD Unavailable Unavailable Мария Boyce MD Unavailable Unavailable Мария Boyce MD Unavailable Unavailable Мария Boyce MD Unavailable Unavailable Мария Boyce MD Unavailable Unavailable Мария Boyce MD Unavailable Unavailable Мария Boyce MD Unavailable Unavailable Мария Boyce MD Unavailable Unavailable Мария Boyce MD Unavailable Unavailable Мария Boyce MD Unavailable Unavailable Мария Boyce MD Unavailable Unavailable GlendaleМария ellis MD Unavailable Unavailable Cherelle GREWAL Unavailable Unavailable Kasandra Khan MD Unavailable Unavailable SuryadevarKasandra carroll MD Unavailable Unavailable Suryadevara, Kasandra Amjason ALEJANDRO Unavailable Unavailable SuryadevarKasandra carroll MD Unavailable Unavailable Suryadevara, Kasandra Gaines MD Unavailable Unavailable SuryadevarKasandra carroll MD Unavailable Unavailable SuryadevarKasandra carroll MD Unavailable Unavailable SuryadeKasandra salgado MD Unavailable Unavailable Suryadevarcarly, Kasandra Gaines MD Unavailable Unavailable SuryadeKasandra salgado MD Unavailable Unavailable SuryadevarKasandra carroll MD Unavailable Unavailable SuryadevaraKasandra MD Unavailable Unavailable Suryadevara, Kasandra Gaines MD Unavailable Unavailable Suryadevara, Kasandra Gaines MD Unavailable Unavailable SuryadevarKasandra carroll MD Unavailable Unavailable Suryadevarcarly, Kasandra Gaines MD Unavailable Unavailable SuryadevarKasandra carroll MD Unavailable Unavailable SuryadevarKasandra carroll MD Unavailable Unavailable SuryadeKasandra salgado MD Unavailable Unavailable SuryadevarKasandra carroll MD Unavailable Unavailable SuryadevarKasandra carroll MD Unavailable Unavailable SuryadevaraKasandra MD Unavailable Unavailable SuryadevarKasandra carroll MD Unavailable Unavailable SuryadevarKasandra carroll MD Unavailable Unavailable SuryadevarKasandra carroll MD Unavailable Unavailable SuryadevarKasandra carroll MD Unavailable Unavailable SuryadevarKasandra carroll MD Unavailable Unavailable SuryadeKasandra salgado MD Unavailable Unavailable SuryadeKasandra salgado MD Unavailable Unavailable SuryadeKasandra salgado MD Unavailable Unavailable SuryadevarKasandra carroll MD Unavailable Unavailable SuryadeKasandra salgado MD Unavailable Unavailable SuryadeKasandra salgado MD Unavailable Unavailable SuryadeKasandra salgado MD Unavailable Unavailable SuryadeKasandra salgado MD Unavailable Unavailable SuryadeKasandra salgado MD Unavailable Unavailable SuryadeKasandra salgado MD Unavailable Unavailable SuryadeKasandra salgado MD Unavailable Unavailable SuryadeKasandra salgado MD Unavailable Unavailable SuryadeKasandra salgado MD Unavailable Unavailable SuryadeKasandra salgado MD Unavailable Unavailable SuryadeKasandra salgado MD Unavailable Unavailable Suryadevara, C Amar MD Unavailable Unavailable Suryadevara, C Amar MD Unavailable Unavailable Suryadevara, C Amar MD Unavailable Unavailable Suryadevara, C Amar MD Unavailable Unavailable Suryadevara, C Amar MD Unavailable Unavailable Suryadevara, C Amar MD Unavailable Unavailable Suryadevara, C Amar MD Unavailable Unavailable Suryadevara, C Amar MD Unavailable Unavailable Suryadevara, C Amar MD Unavailable Unavailable Suryadevara, C Amar MD Unavailable Unavailable Suryadevara, C Amar MD Unavailable Unavailable CRISTIN LAND Unavailable Unavailable Re-disclosure Warning The records that you are about to access may contain information from federally-assisted alcohol or drug abuse programs. If such information is present, then the following federally mandated warning applies: This information has been disclosed to you from records protected by federal confidentiality rules (42 CFR part 2). The federal rules prohibit you from making any further disclosure of this information unless further disclosure is expressly permitted by the written consent of the person to whom it pertains or as otherwise permitted by 42 CFR part 2. A general authorization for the release of medical or other information is NOT sufficient for this purpose. The Federal rules restrict any use of the information to criminally investigate or prosecute any alcohol or drug abuse patient.The records that you are about to access may contain highly sensitive health information, the redisclosure of which is protected by Article 27-F of the [facility] Public Health law. If you continue you may have access to information: Regarding HIV / AIDS; Provided by facilities licensed or operated by the [facility] Office of Mental Health; or Provided by the [facility] Office for People With Developmental Disabilities. If such information is present, then the following [facility] mandated warning applies: This information has been disclosed to you from confidential records which are protected by state law. State law prohibits you from making any further disclosure of this information without the specific written consent of the person to whom it pertains, or as otherwise permitted by law. Any unauthorized further disclosure in violation of state law may result in a fine or skilled nursing sentence or both. A general authorization for the release of medical or other information is NOT sufficient authorization for further disc losure. Allergies and Adverse Reactions Type Description Substance Reaction Status Data Source(s ) SYSTEMIC NO ALLERGIES ON FILE NO ALLERGIES ON FILE [facility] Family History Family Member Name Family Member Gender Family Member Status Date o f Status Description Data Source(s) Unknown Female Problem [facility] ([facility]) Encounters Encounter Providers Location Date Indications Data Source(s ) Outpatient 07/01/2020 12:00:00 AM [facility] Outpatient 07/01/2020 12:00:00 AM [facility] Outpatient 07/01/2020 12:00:00 AM [facility] Outpatient 06/25/2020 12:00:00 AM [facility] Outpatient 06/25/2020 12:00:00 AM [facility] Outpatient 06/25/2020 12:00:00 AM [facility] Outpatient Attender: GRISELDA SANTOS JRReferrer: LEVY Tejeda 06/17/2020 12:00:00 AM [facility] Supervision of with other poor reproductive or obstetric history, unspecified trimester [facility] Supervision of with other poor reproductive or obstetric history, unspecified trimester Outpatient Attender: CRISTIN LANDReferrer: LEVY GREWAL 06/17/2020 12:00:00 AM [facility] Outpatient Attender: NICHOLE Rooter: NICHOLE FINNEGAN [address] 04/13/2020 01:12:52 PM [facility] Outpatient Attender: FRANDY CASTILLO MD Main Office 03/25/2020 10:00:00 AM EST [facility] ([facility] 11/04/2019 12:05:43 PM EDT [facility] 10/29/2019 05:37:40 PM EDT [facility] 10/29/2019 05:36:55 PM EDT [facility] Outpatient 09/03/2019 05:55:00 AM EDT [facility] 07/08/2019 04:45:54 PM EST [facility] 07/08/2019 04:36:14 PM [facility] OUTPATIENT Attender: Bárbara Rice PAReferrer: Bárbara auguste PA 2E-UBP 07/08/2019 04:36:00 PM EST - 07/08/2019 11:59:00 PM [facility] Patient discharged. 07/08/2019 04:30:27 PM [facility] 2E-HL 07/08/2019 04:27:29 PM [facility] 07/08/2019 04:27:19 PM [facility] Outpatient Attender: Mayur Boyce MD 05/23 03:43:00 PM EST - 05/23/2019 03:44:00 PM EST [facility] Outpatient Attender: Mayur Boyce MD 05/23 03:43:00 PM EST - 05/23/2019 03:44:00 PM EST Z12.4 [facility] Z12.4 Outpatient Attender: Liana Khan MD 05/12/2019 12:00: 00 AM [facility] Medications Medication Brand Name Start Date Product Form Dose Route Admi nistrative Instructions Pharmacy Instructions Status Indications Reaction Description Data Source(s) Famotidine 20 MG Oral Tablet [Pepcid] Pepcid 03/24/2020 12:00:00 AM EST ORAL active [facility] ([facility] Multivitamin 03/24/2020 12:00:00 AM EST ORAL activ e [facility] ([facility]) Vitamin B 12 1 MG Extended Release Oral Tablet Vitamin B12 03/24/2020 12:00:00 AM EST ORAL active [facility] ([facility]) alpha-Tocopherol Acetate 30 UNT / Ascorb ic Acid 100 MG / Beta Carotene 1000 UNT / Calcium Carbonate 200 MG / Calcium Pantothenate 7 MG / Cholecalciferol 400 UNT / Docusate Sodium 25 MG / Ferrous fumarate 29 MG / Folic Acid 1 MG / Niacinamide 15 MG / Pyrid 19 03/24/2020 12:00:00 AM EST ORAL active [facility] ([facility]) Cholecalciferol 2000 UNT Oral Tablet Vitamin D 03/24/2020 12:00:00 A M EST ORAL active [facility] ([facility]) Insurance Providers Payer name Policy type / Coverage type Policy ID Covered alliance party ID Covered alliance party's relationship to hodge Policy Hodge Plan Information [facility] [id number] [facility] [id number] U [id number] Self [id number] Self [id number] Self [id number] HUMANA HUMANA Self [place] [id number] S [id number] MELECIO I [id number] Self [id number] [place] [place] [id number] D [id number] Blue Preferred Ppo Health Maintenance Organization (HMO) Family Dependent [employer] [place] Commercial Self [place] Commercial Self [place] [place] [id number] D [id number] McDpending Commercial [id number] S elf [id number] [place] Medigap Part B [id number] Family Dependent [id number] [employer] [place] Medigap Part B [id number] Self [id number] [place] Medigap Part B [id number] Self [id number] GAEL PENDING [id number] P [id number] GAEL PENDING GAEL PENDING P GAEL PE NDING [employer] Commercial [id number] S elf [id number] [place] Medigap Part B [id number] Family Dependent [id number] [employer] [place] Medigap Part B [id number] Self [id number] [employer] [place] Medigap Part B [id number] Self [id number] Self Pay Commercial [id number] Se lf [id number] [place] Health Maintenance Organization (HMO) [id number] Self [id number] [place]ael Medigap Part B [id number] Self [id number] [employer]pending Commercial [id number] S elf [id number] [place] Medigap Part B [id number] Family Dependent [id number] [employer] [place] Medigap Part B [id number] Self [id number] [employer] [place] Medigap Part B [id number] Self [id number] Self Pay Commercial [id number] Se lf [id number] [place] [facility] [place] Health Maintenance Organization (HMO) [id number] Self [id number] Medicaid [place] Medigap Part B [id number] Self [id number] Blue Preferred Ppo Medigap Part B [id number] Family Depend ent [id number] [place] [facility] [place] Health Maintenance Organization (O) [id number] Self [id number] Medicaid [place] Medigap Part [place] [id number] Self [id number] Blue Preferred Ppo Medigap Part B [id number] Family Depend ent [id number] [place] [facility] Maintenance Organization (O) [id number] Self [id number] [place] Medigap Part B [id number] Self [id number] [employer] Commercial [id number] S elf [id number] [employer] Medigap Part B [id number] Family Dependent [id number] [employer] [place] Medigap Part B [id number] Self [id number] [employer] [place] Medigap Part B [id number] Self [id number] Self Pay Commercial [id number] Se lf [id number] [facility] [place] Health Maintenance Organization ([facility] [id number] Self [id number] Medicaid [place] Medigap Part B [id number] Self [id number] Blue Preferred Ppo Medigap Part B [id number] Family Depend ent [id number] [place] [facility] Maintenance Organization (HMO) [id number] Self [id number] [facility] Medigap Part B [id number] Self [id number] [employer] Commercial [id number] S elf [id number] [place] Medigap Part B [id number] Family Dependent [id number] [employer] [place] Medigap Part B [id number] Self [id number] [employer] [place] Medigap Part B [id number] Self [id number] Self Pay Commercial [id number] Se lf [id number] EXCELLUS C [id number] Child [id number] [place] [facility] Maintenance Organization (HMO) [id number] Self [id number] [facility] Medigap Part B [id number] Self [id number] [employer] Commercial [id number] S elf [id number] [employer] Medigap Part B [id number] Family Dependent [id number] [employer] [place] Medigap Part B [id number] Self [id number] [employer] [place] Medigap Part B [id number] Self [id number] Self Pay Commercial [id number] Se lf [id number] [place] [facility] Maintenance Organization (HMO) [id number] Self [id number] [facility] Medigap Part B [id number] Self [id number] [employer] Commercial [id number] S elf [id number] [employer] Medigap Part B [id number] Family Dependent [id number] [employer] [place] Medigap Part B [id number] Self [id number] [employer] [place] Medigap Part B [id number] Self [id number] Self Pay Commercial [id number] Se lf [id number] [facility] [place] Commercial [id number] Self [id number] [place] Med[place] Part B [id number] Self [id number] [employer] Medigap Part B [id number] Self [id number] [facility] [place] Commercial [id number] Self [id number] [place] [id number] Self [id number] [employer] Medigap Part B [id number] Self [id number] [facility] (HMO) [id number] Self [id number] [facility] Medigap Part B [id number] Self [id number] [employer] [id number] S elf [id number] [employer] Medigap Part B [id number] Family Dependent [id number] [employer] [place] Med[place] Part B [id number] Self [id number] [employer] [place] Medigap Part B [id number] Self [id number] Self Pay Commercial [id number] Se lf [id number] MEDICAID [id number] SELF [id number] [place] [facility] (HMO) [id number] Self [id number] [facility] Medigap Part B [id number] Self [id number] [employer] Commercial [id number] S elf [id number] [facility] Part B [id number] Family Dependent [id number] [facility] Part B [id number] Self [id number] [facility] Part B [id number] Self [id number] Self Pay Commercial [id number] Se lf [id number] [facility] [id number] SELF [id number] Self Problems, Conditions, and Diagnoses Code Display Name Description Problem Type Effective Dates Data Source(s) O09.299 Supervision of wit h other poor reproductive or obstetric history, unspecified trimester Supervision of with other poor reproductive or obstetric history, unspecified trimester Diagnosis 06/17/2020 12:59:42 PM [facility] Z86.39 Personal history of other endocrine, nut ritional and metabolic disease Personal history of other endocrine, nutritional and metabolic disease Diagnosis 07/08/2019 04:36:10 PM [facility] E55.9 Vitamin D deficiency, unspecified Vitamin D defi ciency, unspecified Diagnosis 07/08/2019 04:36:10 PM [facility] Z98.84 Bariatric surgery status Bariatric surgery status Diag nosis 07/08/2019 04:36:10 PM [facility] K91.2 Postsurgical malabsorption, not elsewher e classified Postsurgical malabsorption, not elsewhere classified Diagnosis 07/08/2019 04:36:10 PM [facility] Surgeries/Procedures Procedure Description Date Indications Data Source(s) ECG ROUTINE ECG W/LEAST 12 LDS W/I&R 03/25/2020 12:00: 00 AM EST [facility] ([facility]) IRON BINDING CAPACITY, TOTAL IRON BINDING CAPACITY, TOTAL Routi ne 07/08/2019 4:37 PM EST Postoperative blind loop syndrome Bariatric surgery status Vitamin D deficiency disease Personal history of nutritional deficiency 07/08/2019 09:37: 00 PM EST Personal history of nutritional deficiencyVitamin D deficiency diseaseBariatric surgery statusPostoperative blind loop syndrome [facility] Personal history of nutritional deficien cy Vitamin D deficiency disease Bariatric surgery status Postoperative blind loop syndrome 25 HYDROXY INCLUDES FRACTIONS IF PERFORMED VITAMIN D 25 HYDROXY Routine 07/08/2019 4:37 PM EST Postoperative blind loop syndrome Bariatric surgery status Vitamin D deficiency disease Personal history of nutritional deficiency 07/08/2019 09:37: 00 PM EST Personal history of nutritional deficiencyVitamin D deficiency diseaseBariatric surgery statusPostoperative blind loop syndrome [facility] Personal history of nutritional deficien cy Vitamin D deficiency disease Bariatric surgery status Postoperative blind loop syndrome CBC AND DIFFERENTIAL CBC AND DIFFERENTIAL Routine 07/08/2019 4:37 PM EST Postoperative blind loop syndrome Bariatric surgery status Vitamin D deficiency disease Personal history of nutritional deficiency 07/08/2019 09:37: 00 PM EST Personal history of nutritional deficiencyVitamin D deficiency diseaseBariatric surgery statusPostoperative blind loop syndrome [facility] Personal history of nutritional deficien cy Vitamin D deficiency disease Bariatric surgery status Postoperative blind loop syndrome PHOSPHORUS INORGANIC PHOSPHORUS Routine 07/08/2019 4:37 PM EST Postoperative blind loop syndrome Bariatric surgery status Vitamin D deficiency disease Personal history of nutritional deficiency 07/08/2019 09:37: 00 PM EST Personal history of nutritional deficiencyVitamin D deficiency diseaseBariatric surgery statusPostoperative blind loop syndrome [facility] Personal history of nutritional deficien cy Vitamin D deficiency disease Bariatric surgery status Postoperative blind loop syndrome MAGNESIUM MAGNESIUM Routine 07/08/2019 4:37 PM EST Postoperative blind loop syndrome Bariatric surgery status Vitamin D deficiency disease Personal history of nutritional deficiency 07/08/2019 09:37: 00 PM EST Personal history of nutritional deficiencyVitamin D deficiency diseaseBariatric surgery statusPostoperative blind loop syndrome [facility] Personal history of nutritional deficien cy Vitamin D deficiency disease Bariatric surgery status Postoperative blind loop syndrome IRON IRON Routine 07/08/2019 4:37 PM EST Postoperative blind loop syndrome Bariatric surgery status Vitamin D deficiency disease Personal history of nutritional deficiency 07/08/2019 09:37: 00 PM EST Personal history of nutritional deficiencyVitamin D deficiency diseaseBariatric surgery statusPostoperative blind loop syndrome [facility] Personal history of nutritional deficien cy Vitamin D deficiency disease Bariatric surgery status Postoperative blind loop syndrome HEMOGLOBIN GLYCOSYLATED A1C HEMOGLOBIN A1C Routine 07/08/2019 4:37 PM EST Postoperative blind loop syndrome Bariatric surgery status Vitamin D deficiency disease Personal history of nutritional deficiency 07/08/2019 09:37: 00 PM EST Personal history of nutritional deficiencyVitamin D deficiency diseaseBariatric surgery statusPostoperative blind loop syndrome [facility] Personal history of nutritional deficien cy Vitamin D deficiency disease Bariatric surgery status Postoperative blind loop syndrome FERRITIN FERRITIN Routine 07/08/2019 4:37 PM EST Postoperative blind loop syndrome Bariatric surgery status Vitamin D deficiency disease Personal history of nutritional deficiency 07/08/2019 09:37: 00 PM EST Personal history of nutritional deficiencyVitamin D deficiency diseaseBariatric surgery statusPostoperative blind loop syndrome [facility] Personal history of nutritional deficien cy Vitamin D deficiency disease Bariatric surgery status Postoperative blind loop syndrome CYANOCOBALAMIN VITAMIN B-12 VITAMIN B12 Routine 07/08/2019 4:37 PM EST Postoperative blind loop syndrome Bariatric surgery status Vitamin D deficiency disease Personal history of nutritional deficiency 07/08/2019 09:37: 00 PM EST Personal history of nutritional deficiencyVitamin D deficiency diseaseBariatric surgery statusPostoperative blind loop syndrome [facility] Personal history of nutritional deficien cy Vitamin D deficiency disease Bariatric surgery status Postoperative blind loop syndrome COMPREHENSIVE METABOLIC PANEL COMPREHENSIVE METABOLIC PANEL Rou haritha 07/08/2019 4:37 PM EST Postoperative blind loop syndrome Bariatric surgery status Vitamin D deficiency disease Personal history of nutritional deficiency 07/08/2019 09:37: 00 PM EST Personal history of nutritional deficiencyVitamin D deficiency diseaseBariatric surgery statusPostoperative blind loop syndrome [facility] Personal history of nutritional deficien cy Vitamin D deficiency disease Bariatric surgery status Postoperative blind loop syndrome Results ID Date Data Source [id number] 03/21/2020 03:55:00 PM EST [facility] Name Value Range Interpretation Code Description Data Madelaine rce(s) Supporting Document(s) SARS coronavirus 2 RNA [facility] This lab was ordered by [facility] and reported by [facility]. ID Date Data Source [id number] 03/11/2020 11:26:00 AM EST [facility] ([facility]) Name Value Range Interpretation Code Description Data Madelaine rce(s) Supporting Document(s) White Blood Count 6.60 5.0-10.0 [facility] ([facility]) Platelets 230 172-450 [facility] ([facility] Hemoglobin 13.0 [facility] ([facility]) Red Blood Count 4.13 4.00-5.40 [facility] ([facility]) Hematocrit 38.3 [facility] ([facility]) ID Date Data Source [id number] 07/10/2019 03:22:00 AM [facility] Name Value Range Interpretation Code Description Data Madelaine rce(s) Supporting Document(s) Folate, RBC 804.49 ng/ml 280.00-791.00 Above high normal [facility] Patients routinely receiving high-dose b iotin therapy may show falselyelevated results. Additional information may be required for diagonsis.The above 1 analytes were performed by [facility] [id number] [place] [address], ,[place] [address] ID Date Data Source [id number] 07/08/2019 08:55:00 PM [facility] Name Value Range Interpretation Code Description Data Madelaine rce(s) Supporting Document(s) Iron 71 ug/dl 50-170 Normal (applies to non-numeric resul ts) [facility] Patients treated with metal-binding drug s (e.g deferoxamine) may havedepressed iron values.The above 1 analytes were performed by [facility] [address], ,[place] [address] ID Date Data Source [id number] 07/08/2019 08:35:00 PM [facility] Name Value Range Interpretation Code Description Data Madelaine rce(s) Supporting Document(s) AST 9 IU/L 15-37 Below low normal [facility] Sulfasalazine and sulfapyridine have the potential to falsely depressAspartate Aminotransferase results. Baseline values before medication administration are recommended. ALT 24 IU/L 13-56 Normal (applies to non-numeric resul ts) [facility] Sulfasalazine and sulfapyridine have the potential to falsely depressAlanine Aminotransferase results. Baseline values before medication administration are recommended. Alkaline Phosphatase 71 mIU/ml 50-136 Normal (applies to non-num juan carlos results) [facility] Total Bilirubin 0.60 mg/dl 0.20-1.00 Normal (applies to non-numeric results) [facility] Blood Urea Nitrogen 19 mg/dl 7-18 Above high normal [facility] Creatinine 0.53 mg/dl 0.51-0.95 Normal (applies to non-numeric resul ts) [facility] N-Acetylcysteine (NAC) and Metamizole paul ve the potential to falselydepress Creatinine results. Baseline values before medication adminstration are recommended. Patients undergoing treatment with phenindione will have falselydepressed results. Patients on phenindione therapy should be tested with an alternativeCREA method. Glomerular Filtration Rate >90.00 mL/min/1.73m2 [facility] GFR Reference Ranges:Normal Function or Mild Renal Disease,if clinically at risk:>or= 60Moderately decreased:30 - 59Severely decreased:15 - 29Renal Failure:<15 Please note that the MDRD equation requires an additional adjustment forAfrican-Americans (multiply the GFR result by 1.210).Glomarular Filtration Rate (GFR) is estimated based on the MDRDequation, which assumes a steady state for creatinine (Areli Int Med 139/2 137-149, 2003), as recommended by the NationalKidney Disease Education Program in conjunction with the National Institutes of Health and the National KidneyFoundation. The [place] method used in calculating this result is traceable to [place] standards. Glucose 59 mg/dl 70-110 Below low normal [facility] Sulfasalazine has the potential to false ly depress Glucose results. Sulfapyridine has the potential to falsely elevate Glucose results. Baseline values before medication administration are recommended. Calcium 9.0 mg/dl 8.5-10.1 Normal (applies to non-numeric resul ts) [facility] Total Protein 6.3 g/dl 6.4-8.2 Below low normal [facility] Albumin 3.7 g/dl 3.4-5.0 Normal (applies to non-numeric resul ts) [facility] Sodium 143 mEq/L 136-145 Normal (applies to non-numeric resul ts) [facility] Potassium 3.9 mEq/L 3.5-5.1 Normal (applies to non-numeric resul ts) [facility] Chloride 111.0 mEq/L 98.0-107.0 Above high normal [facility] Carbon Dioxide 27.1 mMol/L 21.0-32.0 Normal (applies to non-numeric results) [facility] Anion Gap 8.8 [facility] The above 16 analytes were performed by [facility] [id number] [place] [address], ,[place] [address] ID Date Data Source [id number] 07/08/2019 08:35:00 PM EST [facility] Name Value Range Interpretation Code Description Data Madelaine rce(s) Supporting Document(s) Total Iron-Binding Capacity 234 ug/dl 250-450 Below low normal [facility] The above 1 analytes were performed by [facility] [id number] [place] [address], ,[place] [address] ID Date Data Source [id number] 07/08/2019 08:35:00 PM EST [facility] Name Value Range Interpretation Code Description Data Madelaine rce(s) Supporting Document(s) Ferritin 103.3 ng/ml 3.0-388.0 Normal (applies to non-numeric resu lts) [facility] The above 1 analytes were performed by [facility] [id number] [place] [address], ,[place] [address] ID Date Data Source [id number] 07/08/2019 08:35:00 PM [facility] Name Value Range Interpretation Code Description Data Madelaine rce(s) Supporting Document(s) Phosphorus 4.0 mg/dl 2.5-4.9 Normal (applies to non-numeric resul ts) [facility] The above 1 analytes were performed by [facility] [id number] [place] [address], ,[place] [address] ID Date Data Source [id number] 07/08/2019 08:35:00 PM [facility] Name Value Range Interpretation Code Description Data Madelaine rce(s) Supporting Document(s) Magnesium 2.3 mg/dl 1.6-2.6 Normal (applies to non-numeric resul ts) [facility] The above 1 analytes were performed by [facility] [id number] [place] [address], ,[place] [address] ID Date Data Source [id number] 07/08/2019 08:29:00 PM [facility] Name Value Range Interpretation Code Description Data Madelaine rce(s) Supporting Document(s) Hemoglobin A1C 5.0 % 0.0-5.6 Normal (applies to non-numeric r esults) [facility] Attention! Effective: 05/14/2019Please n ote a change in the reference range for Hemoglobin A1C testing.Previous Reference Range: 4.2-6.3New Reference Range: Normal: Less than 5.7% Pre-Diabetes: 5.7 - 6.4% Diabetes: Greater than 6.5%The above 1 analytes were performed by [facility] [id number] [place] [address], ,[place] [address] ID Date Data Source [id number] 07/08/2019 08:17:00 PM [facility] Name Value Range Interpretation Code Description Data Madelaine rce(s) Supporting Document(s) Vitamin B12 244 pg/ml 211-911 Normal (applies to non-numeric resu lts) [facility] The above 1 analytes were performed by [facility] [id number] [place] [address], ,[place] [address] ID Date Data Source [id number] 07/08/2019 08:17:00 PM [facility] Name Value Range Interpretation Code Description Data Madelaine rce(s) Supporting Document(s) Vitamin D, 25-OH 19.5 ng/ml 30.0-100.0 Below low normal Health system The above 1 analytes were performed by [facility] [id number] [place] [address], ,[place] [id number] ID Date Data Source [id number] 07/08/2019 07:15:00 PM EST [facility] Name Value Range Interpretation Code Description Data Madelaine rce(s) Supporting Document(s) WBC 5.71 x1000/ul 4.80-10.00 Normal (applies to non-numeric re sults) [facility] RBC 4.18 x1Mil/ul 4.20-5.40 Below low normal [facility] Hemoglobin 12.9 g/dl 12.0-16.0 Normal (applies to non-numeric resul ts) [facility] Hematocrit 40.0 % 37.0-47.0 Normal (applies to non-numeric resul ts) [facility] MCV 95.7 fL 81.0-99.0 Normal (applies to non-numeric resul ts) [facility] MCH 30.9 pg 27.0-31.0 Normal (applies to non-numeric resul ts) [facility] MCHC 32.3 g/dl 32.2-37.0 Normal (applies to non-numeric resul ts) [facility] RDW 11.9 % 11.5-14.5 Normal (applies to non-numeric resul ts) [facility] Platelet Count 238 x1000/ul 130-400 Normal (applies to non-numeric results) [facility] MPV 10.3 fL 9.4-12.4 Normal (applies to non-numeric resul ts) [facility] Neutrophils 52.0 % 40.0-74.0 Normal (applies to non-numeric resu lts) [facility] Lymphocytes 37.0 % 19.0-48.0 Normal (applies to non-numeric resu lts) [facility] Monocytes 8.9 % 3.4-9.0 Normal (applies to non-numeric resul ts) [facility] Eosinophils 1.2 % 0.0-7.0 Normal (applies to non-numeric resu lts) [facility] Basophils 0.5 % 0.0-2.0 Normal (applies to non-numeric resul ts) [facility] Immature Granulocytes 0.4 % 0.0-0.5 Normal (applies to non-nu meric results) [facility] Nucleated RBCs 0.00 % 0.00-0.20 Normal (applies to non-numeric r esults) [facility] Abs. Neutrophils 2.97 x1000/ul 1.92-8.31 Normal (applies to non-numeric results) [facility] Abs. Lymphocyte 2.11 x1000/ul 1.20-3.70 Normal (applies to non-n umeric results) [facility] Abs. Monocytes 0.51 x1000/ul 0.14-0.97 Normal (applies to non-nu meric results) [facility] Abs. Eosinophils 0.07 x1000/ul 0.00-0.76 Normal (applie s to non-numeric results) [facility] Abs. Basophils 0.03 x1000/ul 0.00-0.22 Normal (applies to non-n umeric results) [facility] Abs. Immature Gran. 0.02 x1000/ul 0.00-0.02 Normal (appl ies to non-numeric results) [facility] Abs. Nucleated RBCs 0.00 x1000/ul 0.00-0.02 Normal (appl ies to non-numeric results) [facility] The above 24 analytes were performed by [facility] [id number] [place] [address], ,[place] [address] ID Date Data Source [id number] 05/30/2019 03:09:00 PM [facility] [place] [address] Brenda Trinidad M.D., Cardiology Coordinator Laboratory Report Pg 1 PATIENT: ASIF SAVAGE Gutierrez : 89 M.R.N.: [id number]: Mayur Boyce MD AGE/SEX: 24/F COPIES TO: LOC: MD Mayur Sargent MD ACCESSION NUMBER: [id number] RECEIVED: 05/26/19 CLINICAL HISTORY: LMP: 05/07/19 Previous Pap: 05/21/18 WNL SPECIMEN: CERV/ENDOCERV THINPREP ROUTINE GYNECOLOGICAL CYTOLOGY RESULT SPECIMEN ADEQUACYSatisfactory for Evaluation. Endocervical cells/Transformation zone component present. . GENERAL CATEGORIZATIONNegative for Intraepithelial Lesion or Malignancy . INTERPRETATION/RESULTNegative for squamous intraepithelial lesion or malignancy . RECOMMENDATIONFollow up as clinically indicated. . This is the result of a screening test with an inherent, but low,probability of error. Your patient should be reminded to cons ultyou immediately if she experiences any suspicious signs or symptoms regardless of her Pap Test result. Screened By: ANUSHA Moraes([facility]) Signed (signature on file) ANUSHA Moraes, ([facility]) 05/30/19 1509 Name Value Range Interpretation Code Description Data Madelaine rce(s) Supporting Document(s) Procedure Social History Code Duration Value Status Description Data Source(s ) Smoking 03/25/2020 12:00:00 AM EST Patient is a former smoker completed Patient is a former smoker [facility] ([facility]) Vital Signs ID Date Data Source UNK Name Value Range Interpretation Code Description Data Source(s) Diastolic blood pressure--sitting 61 mm[Hg] 61 mm[Hg] [facility] ([facility]) Omron, adult cuff/Ra Systolic blood pressure--sitting 100 mm[Hg] 100 mm[Hg] [facility] ([facility]) Omron, adult cuff/Ra Heart rate 69 /min 69 /min [facility] ([facility]) Body mass index (BMI) [Ratio] 25.1 kg/m2 25.1 k g/m2 [facility] ([facility]) Body height 62 [in_i] 62 [in_i] [facility] ([facility]) 5'2" Body weight 137.00 [lb_av] 137.00 [lb_av] MEDEN T ([facility]) Diastolic blood pressure 84 mm[Hg] 84 mm[Hg] [facility] ([facility]) Body height 61 [in_i] 61 [in_i] [facility] ([facility]) 5'1" Body weight 144.00 [lb_av] 144.00 [lb_av] MEDEN T ([facility]) Body weight 65.318 kg 65.318 kg [facility] ([facility]) Body mass index (BMI) [Ratio] 27.2 kg/m2 27.2 k g/m2 [facility] ([facility]) Systolic blood pressure 112 mm[Hg] 112 mm[Hg] M LY ([facility]) ID Date Data Source [id number] 06/17/2020 03:39:52 PM [facility] Name Value Range Interpretation Code Description Data Source(s) WEIGHT RECORDED 150 lb 150 lb [facility]
== END 2020-06-11 13:10 | disposition home or self-care (01) ==
LOC: M LDO 22:33 → M OBS 22:34 → M LDO 06-10 03:50 → M OBS 06-11 13:10
DX: O26.852 Spotting complicating pregnancy, second trimester (principal); O34.32 Maternal care for cervical incompetence, second trimester; O99.842 Bariatric surgery status complicating pregnancy, second trimester; O99.342 Other mental disorders complicating pregnancy, second trimester; F41.0 Panic disorder [episodic paroxysmal anxiety]; O99.512 Diseases of the respiratory system complicating pregnancy, second trimester; J45.909 Unspecified asthma, uncomplicated; O71.3 Obstetric laceration of cervix; Z3A.23 23 weeks gestation of pregnancy
CPT/HCPCS: 76815; 76817; 96372; J0702

== ENCOUNTER 2020-07-27 20:20 | Outpatient (CLI) | payer OTHER ==
[~2020-07-27] VITALS: Ht 157.5 cm; Wt 73.1 kg
[2020-07-27 20:46] VITALS: BP 99/56
--- NOTE | 2020-07-27 21:51 | IPNPDOC ---
Text Note Date of Service The patient was seen on 07/27/20. NOTE 25yo at 30+3wks presenting for c/o pelvic pressure creating a constant pelvic pain. She reports this pain started after intercourse 2 days ago. She reports having spotting VB after intercourse that has since resolved but the pressure sensation has not despite hydrating, hot showers, and laying down. Denies DFM, LOF, or ctx's. Vitals: normotensive, afebrile NST: appropriate for gestational age [place]: 1 contraction over the course of her triage stay that patient did not feel PE: General: well-appearing, in NAD, conversing and laughing in full sentences with spouse at bedside HEENT: NC/AT, airway patent and self-maintained RESP: no exaggerated respiratory effort noted CARDS: well-perfused, no edema ABD: soft, nontender, gravid : cervix noted to have a flap with granulation tissue at the 12 o'clock position on the cervix. Cervical os closed. No abnml vaginal discharge noted. Ext: no edema noted Labs: UA: negative A/P: 25yo at 30+3wks presenting for pelvic pressure for 2 days. Cervix closed/thick/high. status reassuring. No ctx's on tocometry. Patient offered reassurance and counseled to use maternity support belt. She reported she is changing medical insurance to Medicaid as spouse is leaving the in 3 weeks. Patient counseled to call [facility] for transfer of care and to contact my clinic to arrange transfer of records. Patient to f/u for COB appt with [facility] for growth/BPP as scheduled on and for COB appt in 1 week at [facility]. All questions answered. Med rec done. [facility] Staff VS,Sabiha, I+O VS, Sabiha, I+O Vital Signs Date Time Temp Pulse Resp B/P (MAP) Pulse Ox O2 Delivery O2 Flow Rate FiO2 07/27/20 20:46 98.2 80 16 99/56 (70) LEVY GREWAL DO Jul 27, 2020 21:51
== END 2020-07-27 21:49 | disposition home or self-care (01) ==
LOC: M LDO 20:20
DX: O26.893 Other specified pregnancy related conditions, third trimester (principal); R10.2 Pelvic and perineal pain; Z3A.30 30 weeks gestation of pregnancy
CPT/HCPCS: 59025; 81001; 87086; G0378; G0463

== ENCOUNTER → 2020-08-17 | Outpatient (REF) | payer OTHER, MEDICAID | LOC: M PLALAB 12:02 | PROVIDERS: ATTEND Obstetrics & Gynecology | DX: Z3A.33 33 weeks gestation of pregnancy (principal); Z53.9 Procedure and treatment not carried out, unspecified reason ==

== ENCOUNTER → 2020-08-18 | Outpatient (CLI) | payer OTHER, MEDICAID | LOC: M WHC 09:21 | PROVIDERS: ATTEND Obstetrics & Gynecology | DX: Z3A.33 33 weeks gestation of pregnancy (principal); Z53.9 Procedure and treatment not carried out, unspecified reason ==

== ENCOUNTER → 2020-08-25 | Outpatient (CLI) | payer OTHER, MEDICAID ==
--- NOTE | 2020-08-25 12:06 | REP ---
INDICATION: BPP/GROWTH COMPARISON: 06/11/2020 TECHNIQUE: Transabdominal obstetrical ultrasound with color Doppler evaluation. FINDINGS: Examination demonstrates a single live intrauterine in cephalic anti presentation. motion is identified by technologist. Placenta is noted and barrier grade 1 without evidence for placenta previa or abruption. Amniotic fluid volume is normal. Cervix measures 3.6 cm in length and appears closed.. Gestational age by LMP 34 weeks 6 days with DOROTA 09/30/2020. Gestational age by current measurements 31 weeks 5 days with DOROTA 10/22/2020. FHR equals 133 beats per minute. BPD: 8.1 cm at 32 weeks 5 days HC: 28.7 cm at 31 weeks 4 days AC: 28.0 cm at 32 weeks 0 days FL: 6.2 cm at 32 weeks 1 day HL: 5.2 cm at 30 weeks 2 days HC/AC: 1.03 Estimated weight 1897 grams (less than 3rdpercentile based on age by LMP). ADELAIDA: 14.2 cm (7.9-24.9) Biophysical profile score: 8/8 Umbilical artery SD ratio: 1.96, 2.34 (1.69-3.60) IMPRESSION: Single live advanced gestation in cephalic presentation demonstrating less than expected interval growth/weight. Amniotic fluid index and biophysical profile score normal. <Electronically signed by Pop Barnes > 08/25/20 [id number]
== END ==
LOC: M WHC 10:22
PROVIDERS: ATTEND Obstetrics & Gynecology
DX: Z34.80 Encounter for supervision of other normal pregnancy, unspecified trimester (principal); Z3A.33 33 weeks gestation of pregnancy

== ENCOUNTER → 2020-08-27 | Outpatient (REF) | payer OTHER, MEDICAID | LOC: M SFHCWAGY 13:22 | PROVIDERS: ATTEND Advanced Practice Midwife | DX: O36.5930 Maternal care for other known or suspected poor fetal growth, third trimester, not applicable or unspecified (principal) | CPT/HCPCS: 59025; 87081; 87186; G0463 ==

== ENCOUNTER 2020-08-28 14:01 | Outpatient (CLI) | payer OTHER, MEDICAID ==
[~2020-08-28] VITALS: Ht 157.5 cm; Wt 72.5 kg
[2020-08-28 14:25] VITALS: BP 107/66
--- NOTE | 2020-08-28 15:18 | IPNPDOC ---
Obstetrical Progress Note Date of Service Aug 28, 2020 Subjective 25 yo female at 35 2/7 weeks presents for decreased movement today. Her hx is significant for removal of a cervical cerclage at 24 weeks due to cervical trauma. Objective Vital Signs Date Time Temp Pulse Resp B/P (MAP) Pulse Ox O2 Delivery O2 Flow Rate FiO2 08/28/20 14:25 98.0 83 18 107/66 (80) Assessment Variability: Moderate Accelerations: Positive Decelerations: None Heart Rate Tracing: Category I Tocometer Contractions: No Sterile Vaginal Examination Dilation: 3 cm Effacement (%): 80% Station: -2 Cervical Consistency: Medium Cervical Position: Middle Postion/Presentation: Cephalic presentation Assessment and Plan Age: 25 : 2 Term: 0 Pre-term: 0 Abortions: 1 Livin Status: Reassuring Additional Comments 25 yo female at 35 2/7 weeks with reassuring testing Perceived movements increased upon arrival to triage NST category one fu office as scheduled GRISELDA JOHNSON MD Aug 28, 2020 15:18
== END 2020-08-28 15:15 | disposition home or self-care (01) ==
LOC: M LDO 14:01
PROVIDERS: ATTEND Specialist
DX: O36.8130 Decreased fetal movements, third trimester, not applicable or unspecified (principal); Z3A.35 35 weeks gestation of pregnancy
CPT/HCPCS: 59025; G0378; G0463

== ENCOUNTER → 2020-09-01 | Outpatient (CLI) | payer OTHER, MEDICAID ==
--- NOTE | 2020-09-01 13:08 | REP ---
INDICATION: BPP. COMPARISON: 08/25/2020. TECHNIQUE: Real-time sonographic evaluation of the gravid uterus performed. FINDINGS: Estimated gestational age is35 weeks 6 days, EDC 09/30/2020. Presentation: Cephalic Placenta anterior, grade 1, without evidence of placenta previa. heart rate is recorded at 148 beats per minute. Amniotic fluid is subjectively normal. With ADELAIDA 12.8, normal 7.7-24.9. Biophysical profile score 8/8. SD ratio umbilical artery 2.49, normal 1.64-3.52. RI 0.60, normal 0.45-0.71. Closed cervical length is measured at 3.2 cm. IMPRESSION: Viable single intrauterine gestation as above. <Electronically signed by Demarcus Cartwright > 09/01/20 [id number]
== END ==
LOC: M WHC 12:20
PROVIDERS: ATTEND Obstetrics & Gynecology
DX: Z36.89 Encounter for other specified antenatal screening (principal); Z34.83 Encounter for supervision of other normal pregnancy, third trimester; Z3A.35 35 weeks gestation of pregnancy

== ENCOUNTER 2020-09-09 07:00 | Inpatient (IN) | payer OTHER, MEDICAID ==
[2020-09-09] VITALS (22 sets, daily range): BP systolic 93–153; BP diastolic 53–92
[~2020-09-09] VITALS: Ht 157.5 cm; Wt 76.6 kg
[2020-09-09] MEDS ORDERED: PEPC1TAB5 PO (07:18)
[2020-09-09] MEDS ORDERED: PENICILLIN G POTASSIUM IV 5 MU in D5W MINI-BAG PLUS 100 ML IV STA ×2 (07:26→08:15)
--- NOTE | 2020-09-09 08:23 | HPEPDOC ---
Obstetrical History & Physical General Date of Admission September 09, 2020 at 07:00 History of Present Illness 25 yo female at 37 0/7 weeks gestation by LMP c/w ultrasound (EDC=09/30/2020) presents for labor induction due to severe IUGR. She denies contractions. Good movements. Chief Complaint: Induction of labor Information Provided By: Patient Age: 25 : 2 Term: 0 Pre-term: 0 Abortions: 1 Livin Care Care: Good Care Dating Final EDC: September 30, 2020 Final EDC by: LMP Antepartum Course Diagnos(e)s 1. cervical incompetence: Cerclage placed 03/2021. Cerclage removed at 24 weeks due to cervical trauma. 2. severe IUGR based upon ultrasound 1897 grams Past Medical History Past Obstetrical History : Past Obstetrical History: Multigravida Gestation: 1 (19 week of IUFD due t ocervical incompetence) Type of Delivery: Spontaneous Vaginal Del. Complications: Yes (IUFD) Past Medical History Medical History Medical hx: anxiety surgical hx: 1. Gastric bypass 2. Cerclage placement and removal 3. T+A Family History Significant Family History: No pertinent family hx Social History Marital Status: Single Family situation: Spouse/partner home Psychosocial History: Anxiety Allergies Coded Allergies: No Known Allergies (Unverified , 07/27/20) Medications Scheduled Famotidine (Pepcid) 20 Mg Tablet, 20 MG PO DAILY Physical Examination Physical Examination GENERAL: Alert and oriented times three. BREAST: . ABDOMEN: Gravid and non-tender to touch. FETUS: Is vertex (VTX) by sterile vaginal examination (SVE), fetus is vertex (VTX) by [place]. HEART RATE: Regular rate and rhythm. LUNGS: Clear to auscultation (CTA). EXTREMITIES: No edema. No clonus. Deep tendon reflexes (DTRs) + . Laboratory Data 24H LABS Laboratory Tests 2 09/09/20 07:09: Serology Scanned Report Hepatitis B Testing Pertinent Laboratoy Data Blood Type: B+ Group B Streptococcus: Positive Vaginal Examination Dilation: 3 cm Effacement: 70% Station: -2 Cervical Consistency: Medium Cervical Position: Posterior Presentation: Cephalic presentation Assessment Variability: Moderate Accelerations: Positive Decelerations: None Tocometer Contractions: No Assessment/Plan Assessment Pt is a 25-year-old (G)2 para (P)0-0-1-0 at 37+0 weeks by LMP Presents to Labor and Delivery (L&D) for induction due to severe IUGR. Plan Admit and orient. [employer] and consent. Diet: reg. Group B Streptococcus (GBS) positive. Labs and intravenous (IV) per unit protocol. Anticipate [normal spontaneous delivery (). C-S as appropriate. GRISELDA JOHNSON MD September 09, 2020 08:22
[2020-09-09] MEDS: miSOPROStol 50MCG 1/2 TABLET SL SCH ×2 (08:35→12:32)
[2020-09-09 08:48] LABS: HEMATOCRIT 32.4 % (36.0-47.0); HEMOGLOBIN 10.9 g/dl (12.0-15.5); MEAN CORPUSCULAR HEMOGLOBIN 32.2 pg (27.0-33.0); MEAN CORPUSCULAR HGB CONC 33.6 g/dl (32.0-36.5); MEAN CORPUSCULAR VOLUME 95.6 fl (80.0-96.0); PLATELET COUNT, AUTOMATED 233 10^3/uL (150-450); RED BLOOD COUNT 3.39 10^6/uL (4.00-5.40); WHITE BLOOD COUNT 6.1 10^3/uL (4.0-10.0)
[2020-09-09] MEDS ORDERED: **PENDING PCN ENTRY XX SCH (09:00)
[2020-09-09] MEDS ORDERED: PENICILLIN G POTASSIUM IV 2.5 MU in IV 1 EA IV SCH (11:30)
[2020-09-09] MEDS: PENICILLIN G POTASSIUM IV 2.5 MU in IV 1 EA IV SCH ×3 (12:32→20:10)
[2020-09-09] MEDS ORDERED: OXYTOCIN DRIP 30 UNITS in IV 1 EA IV SCH (16:45)
[2020-09-09] MEDS ORDERED: LR 1,000 ML IV SCH (16:45)
--- NOTE | 2020-09-09 16:46 | IPNPDOC ---
Obstetrical Progress Note Date of Service September 09, 2020 Subjective feels contractions, mild Objective Vital Signs Date Time Temp Pulse Resp B/P (MAP) Pulse Ox O2 Delivery O2 Flow Rate FiO2 09/09/20 14:39 98.4 80 16 93/58 (70) Assessment Variability: Moderate Accelerations: Positive Decelerations: None Heart Rate Tracing: Category I Tocometer Contractions: Yes Frequency: regular, every 1-3 min. Duration: less than 60 seconds Strength: palpated as mild Sterile Vaginal Examination Dilation: 4 cm Effacement (%): 80% Station: -2 Cervical Consistency: Soft Cervical Position: Posterior Postion/Presentation: Cephalic presentation Assessment and Plan Status: Reassuring Additional Comments 25 yo female at 37 weeks, induction Pt received 2 doses of Misoprostol Plan to switch to Pitocin pt on PCN for GBS positive status GRISELDA JOHNSON MD September 09, 2020 16:46
[2020-09-10] VITALS (11 sets, daily range): BP systolic 90–175; BP diastolic 54–129
[2020-09-10] MEDS ORDERED: ACETAMINOPHEN TAB 650MG DOSE (2X325MG) PO PRN (01:10)
[2020-09-10] MEDS ORDERED: OXYTOCIN DRIP 30 UNITS in IV 1 EA IV ONE (01:10)
[2020-09-10] MEDS ORDERED: DOCUSATE SODIUM 100MG CAPSULE PO PRN (01:10)
[2020-09-10] MEDS ORDERED: IBUPROFEN 800 MG TAB PO PRN (01:10)
[2020-09-10] MEDS ORDERED: DIBUCAINE 1% OINTMENT 30GM TOP PRN (01:10)
[2020-09-10] MEDS ORDERED: MEASLES,MUMPS,RUBELLA VACCINE INJ (MMR-II) (90707) SC SCH (01:10)
[2020-09-10] MEDS ORDERED: RHOGAM 300 MCG (1500 IU) INJ (J2790) IM SCH (01:10)
[2020-09-10] MEDS ORDERED: ACETAMINOPHEN 500 MG TAB PO PRN (01:10)
[2020-09-10] MEDS ORDERED: METHYLERGONOVINE MALEATE 0.2 MG TAB PO PRN (01:10)
[2020-09-10] MEDS ORDERED: IBUPROFEN 600MG TAB PO PRN (01:10)
--- NOTE | 2020-09-10 01:23 | DNPDOC ---
[facility] Delivery Note Delivery Note DATE OF DELIVERY: September 10, 2020 PREDELIVERY DIAGNOSIS: 37-0/7 weeks' gestation, IUGR, induction POST DELIVERY DIAGNOSIS: Delivered. PROCEDURE: Spontaneous vaginal delivery. CARDIOLOGY PHYSICIAN: Dr. Griselda Johnson MD ANESTHESIA: none. ESTIMATED BLOOD LOSS: 200 mL. FINDINGS: 4 pound 5 ounce female , Score 8/9, nuchal cord times 1. DELIVERY SUMMARY: Patient is a 25-year-old 2 now para 1011 female who was admitted to labor and delivery for induction due to IUGR. She had two doses of Misoprostol. She then received Pitocin and had AROM performed. After a 20 minute second stage she had spontaneous vaginal delivery of a 4 lb. 5 oz. male . Nuchal cord x 1 reduced. Shoulders delivered with ease. Placenta delivered spontaneously and appeared intact. Pt received IV Pitocin immediately after delivery of the placenta. No lacerations present. Sponge counts correct. GRISELDA JOHNSON MD September 10, 2020 01:23
[2020-09-10] MEDS: PRENATAL VITAMINS CHEWABLE TABLET PO SCH (08:44)
[2020-09-11 06:00] VITALS: BP 106/63
--- NOTE | 2020-09-11 07:35 | IPNPDOC ---
Text Note Date of Service The patient was seen on 09/11/20. NOTE PP #1 Feels well. Reports adequate pain management. Voiding VSS, afebrile, normotensive Breasts soft Fundus firm, NT, down 1 FB Lochia rubra light without odor Perineum intact PP #1 Routine care. Anticipate D/C in am VS,Fishbone, I+O VS, Fishbone, I+O Vital Signs Date Time Temp Pulse Resp B/P (MAP) Pulse Ox O2 Delivery O2 Flow Rate FiO2 09/11/20 06:00 98.2 71 17 106/63 (77) 99 Room Air Kianna Cuevas CNM September 11, 2020 07:35
[2020-09-11] MEDS: PRENATAL VITAMINS CHEWABLE TABLET PO SCH (08:46)
[2020-09-11 18:00] VITALS: BP 109/57
[2020-09-12 05:56] VITALS: BP 109/58
[2020-09-12] MEDS: PRENATAL VITAMINS CHEWABLE TABLET PO SCH (09:00)
== END 2020-09-12 12:25 | disposition home or self-care (01) | DRG 807 ==
LOC: M LDI 07:00 → M OBS 09-10 02:07
PROVIDERS: ADMIT Advanced Practice Midwife; ATTEND Advanced Practice Midwife
PROC: 3E0P7GC Introduction of Other Therapeutic Substance into Female Reproductive, Via Natural or Artificial Opening (ICD-10-PCS; 2020-09-09)
PROC: 10E0XZZ Delivery of Products of Conception, External Approach (ICD-10-PCS; principal; 2020-09-10)
PROC: 10907ZC Drainage of Amniotic Fluid, Therapeutic from Products of Conception, Via Natural or Artificial Opening (ICD-10-PCS; 2020-09-10)
DX: O36.5930 Maternal care for other known or suspected poor fetal growth, third trimester, not applicable or unspecified (principal); Z37.0 Single live birth; Z3A.37 37 weeks gestation of pregnancy; O99.824 Streptococcus B carrier state complicating childbirth; O69.81X0 Labor and delivery complicated by cord around neck, without compression, not applicable or unspecified; O99.844 Bariatric surgery status complicating childbirth

== ENCOUNTER 2021-01-05 06:50 | Emergency (ER) | payer MEDICAID, OTHER ==
[~2021-01-05] VITALS: Ht 157.5 cm; Wt 75.2 kg
[2021-01-05] MEDS ORDERED: DEPO150I12 IM (07:00)
[2021-01-05] MEDS ORDERED: B-122500 PO (07:00)
[2021-01-05] MEDS ORDERED: vitamin d3 (07:01)
[2021-01-05] MEDS ORDERED: multivitamin (07:01)
[2021-01-05] MEDS ORDERED: NS 1,000 ML IV ONE (07:40)
[2021-01-05] MEDS: GASTROGRAFIN SOLUTION 30ML PO SCH ×2 (08:14→08:51)
[2021-01-05 08:15] LABS: BASO % 0.7 % (0.0-1.0); EOS # 0.1 10^3/uL (0.0-0.5); EOS % 1.5 % (0.0-3.0); HEMATOCRIT 40.6 % (36.0-47.0); HEMOGLOBIN 13.3 g/dl (12.0-15.5); LYMPH # 1.3 10^3/uL (1.5-5.0); LYMPH % 29.6 % (24.0-44.0); MEAN CORPUSCULAR HEMOGLOBIN 29.8 pg (27.0-33.0); MEAN CORPUSCULAR HGB CONC 32.8 g/dl (32.0-36.5); MEAN CORPUSCULAR VOLUME 90.8 fl (80.0-96.0); MONO # 0.5 10^3/uL (0.0-0.8); MONO % 10.8 % (2.0-8.0); NEUTROPHILS # 2.6 10^3/uL (1.5-8.5); NEUTROPHILS % 57.2 % (36.0-66.0); PLATELET COUNT, AUTOMATED 218 10^3/uL (150-450); RED BLOOD COUNT 4.47 10^6/uL (4.00-5.40); WHITE BLOOD COUNT 4.5 10^3/uL (4.0-10.0)
[2021-01-05 08:38] LABS: ALBUMIN 3.7 GM/DL (3.2-5.2); ALT/SGPT 19 U/L (12-78); BILIRUBIN,DIRECT 0.2 MG/DL (0.0-0.2); BILIRUBIN,TOTAL 0.8 MG/DL (0.2-1.0); LIPASE 170 U/L (73-393); TOTAL PROTEIN 6.7 GM/DL (6.4-8.2)
[2021-01-05 09:06] LABS: BLOOD UREA NITROGEN 19 MG/DL (7-18); CALCIUM LEVEL 8.9 MG/DL (8.5-10.1); CARBON DIOXIDE LEVEL 25 MEQ/L (21-32); CHLORIDE LEVEL 112 MEQ/L (98-107); CREATININE FOR GFR 0.62 MG/DL (0.55-1.30); GLOMERULAR FILTRATION RATE > 60.0 (>60); GLUCOSE, FASTING 90 MG/DL (70-100); POTASSIUM SERUM 3.8 MEQ/L (3.5-5.1); SODIUM LEVEL 143 MEQ/L (136-145)
[2021-01-05] MEDS ORDERED: ISOVUE-370 76% 100ML VIAL As Ordered ONE (09:15)
--- NOTE | 2021-01-05 09:49 | REP ---
INDICATION: RLQ pain, h/o gastric bypass COMPARISON: None. TECHNIQUE: CT Scan of the abdomen and pelvis was performed with intravenous administration of 100 cc of Isovue 370, and oral contrast. Sagittal and coronal reconstruction images are performed. FINDINGS: Lung bases: Unremarkable. Liver: Normal Gallbladder: Unremarkable. Spleen: Normal. Adrenals: Normal. Pancreas: Normal. Kidneys: Normal. Small and large bowel: Unremarkable. There is no free air or bowel obstruction. Free fluid: None. Abdominal aorta: No aneurysm or dissection. Adenopathy: None. Appendix: Not inflamed. Osseous structures: Unremarkable. Pelvis: No mass. IMPRESSION: No acute pathology. <Electronically signed by Demarcus Cartwright > 01/05/21 [id number]
[2021-01-05 11:12] VITALS: BP 128/72
== END 2021-01-05 11:18 | disposition home or self-care (01) ==
LOC: M ED 06:50
DX: E86.0 Dehydration (principal); E10.9 Type 1 diabetes mellitus without complications; F41.9 Anxiety disorder, unspecified; J45.909 Unspecified asthma, uncomplicated; J30.2 Other seasonal allergic rhinitis; Z98.84 Bariatric surgery status; Z79.899 Other long term (current) drug therapy
CPT/HCPCS: 74177; 80048; 80076; 81001; 83690; 84702; 85025; 96360; 96361; 99284; Q9963; Q9967

== ENCOUNTER 2021-01-10 22:29 | Emergency (ER) | payer MEDICAID ==
[~2021-01-10] VITALS: Ht 157.5 cm; Wt 75.4 kg
[~2021-01-10 22:29] MED LIST changes: +DEPO150I12 IM; +multivitamin; +vitamin d3
[2021-01-11 01:24] VITALS: BP 141/72
[2021-01-11 01:32] LABS: BASO % 0.4 % (0.0-1.0); EOS % 0.1 % (0.0-3.0); HEMATOCRIT 41.9 % (36.0-47.0); HEMOGLOBIN 13.6 g/dl (12.0-15.5); LYMPH # 1.5 10^3/uL (1.5-5.0); MEAN CORPUSCULAR HEMOGLOBIN 29.8 pg (27.0-33.0); MEAN CORPUSCULAR HGB CONC 32.5 g/dl (32.0-36.5); MEAN CORPUSCULAR VOLUME 91.9 fl (80.0-96.0); MONO # 0.5 10^3/uL (0.0-0.8); MONO % 7.6 % (2.0-8.0); NEUTROPHILS # 4.9 10^3/uL (1.5-8.5); NEUTROPHILS % 70.8 % (36.0-66.0); PLATELET COUNT, AUTOMATED 265 10^3/uL (150-450); RED BLOOD COUNT 4.56 10^6/uL (4.00-5.40); WHITE BLOOD COUNT 6.9 10^3/uL (4.0-10.0)
[2021-01-11 02:04] LABS: HCG, SERUM QUALITATIVE NEGATIVE (NEGATIVE)
[2021-01-11 02:05] LABS: ALBUMIN 4.1 GM/DL (3.2-5.2); ALT/SGPT 17 U/L (12-78); BILIRUBIN,DIRECT 0.2 MG/DL (0.0-0.2); BILIRUBIN,TOTAL 0.5 MG/DL (0.2-1.0); LIPASE 154 U/L (73-393); TOTAL PROTEIN 7.2 GM/DL (6.4-8.2)
== END 2021-01-11 02:18 | disposition home or self-care (01) ==
LOC: M ED 22:29
DX: R10.31 Right lower quadrant pain (principal); R51.9 Headache, unspecified; E66.9 Obesity, unspecified; J30.2 Other seasonal allergic rhinitis; Z98.84 Bariatric surgery status; Z79.899 Other long term (current) drug therapy

== ENCOUNTER → 2021-01-20 | Outpatient (CLI) | payer MEDICAID ==
--- NOTE | 2021-01-20 15:49 | REP ---
INDICATION: LOWER ABD PAIN. COMPARISON: None. TECHNIQUE: Transvaginal imaging only FINDINGS: Uterus measures 7.6 x 3.8 x 5.4 cm. The parenchymal echo pattern is normal. The endometrial echo complex measures between 3 and 4 mm in its greatest thickness and is within normal limits. The right ovary measures 3.6 x 2.9 x 3.7 cm. Within the right ovary there is a 2.7 x 2.6 x 2.3 cm sized anechoic structure which exhibits posterior wall enhancement and increased through transmission. The right ovarian RI is 0.51. The left ovary measures 3.2 x 2.3 x 2.3 cm and is within normal limits with an RI 0.71. IMPRESSION: There is a simple right ovarian cyst as described above. The examination is otherwise unremarkable. <Electronically signed by Sanket Jamison > 01/20/21 [id number]
== END ==
LOC: M RAD 15:09
DX: R10.31 Right lower quadrant pain (principal); N83.201 Unspecified ovarian cyst, right side

== ENCOUNTER → 2021-02-25 | Outpatient (CLI) | payer MEDICAID ==
[2021-02-25 14:29] LABS: HEMATOCRIT 39.6 % (36.0-47.0); HEMOGLOBIN 12.9 g/dl (12.0-15.5); MEAN CORPUSCULAR HEMOGLOBIN 29.3 pg (27.0-33.0); MEAN CORPUSCULAR HGB CONC 32.6 g/dl (32.0-36.5); MEAN CORPUSCULAR VOLUME 89.8 fl (80.0-96.0); PLATELET COUNT, AUTOMATED 248 10^3/uL (150-450); RED BLOOD COUNT 4.41 10^6/uL (4.00-5.40); WHITE BLOOD COUNT 5.7 10^3/uL (4.0-10.0)
[2021-02-25 15:16] LABS: ALBUMIN 3.8 GM/DL (3.2-5.2); ALT/SGPT 20 U/L (12-78); BILIRUBIN,TOTAL 0.6 MG/DL (0.2-1.0); BLOOD UREA NITROGEN 20 MG/DL (7-18); CARBON DIOXIDE LEVEL 27 MEQ/L (21-32); CHLORIDE LEVEL 110 MEQ/L (98-107); CREATININE FOR GFR 0.76 MG/DL (0.55-1.30); GLOMERULAR FILTRATION RATE > 60.0 (>60); GLUCOSE, FASTING 77 MG/DL (70-100); POTASSIUM SERUM 3.9 MEQ/L (3.5-5.1); SODIUM LEVEL 143 MEQ/L (136-145); THYROID STIMULATING HORMONE 0.073 uIU/ML (0.358-3.740); TOTAL PROTEIN 7.2 GM/DL (6.4-8.2)
== END ==
LOC: M LAB 14:05
PROVIDERS: ATTEND Physician Assistant
DX: L65.8 Other specified nonscarring hair loss (principal)

== ENCOUNTER → 2021-03-18 | Outpatient (CLI) | payer MEDICAID ==
[2021-03-18 14:47] LABS: FREE T4 0.98 NG/DL (0.76-1.46); THYROID STIMULATING HORMONE 0.092 uIU/ML (0.358-3.740); TOTAL T3 94.2 NG/DL (60.0-181.0)
== END ==
LOC: M LAB 13:12
DX: R94.6 Abnormal results of thyroid function studies (principal)

== ENCOUNTER → 2021-04-18 | Outpatient (CLI) | payer MEDICAID ==
[2021-04-18 17:56] LABS: HEMOGLOBIN 13.2 g/dl (12.0-15.5); MEAN CORPUSCULAR HEMOGLOBIN 28.6 pg (27.0-33.0); MEAN CORPUSCULAR HGB CONC 30.7 g/dl (32.0-36.5); MEAN CORPUSCULAR VOLUME 93.3 fl (80.0-96.0); PLATELET COUNT, AUTOMATED 263 10^3/uL (150-450); RED BLOOD COUNT 4.61 10^6/uL (4.00-5.40); WHITE BLOOD COUNT 7.7 10^3/uL (4.0-10.0)
[2021-04-18 19:50] LABS: ALT/SGPT 17 U/L (12-78); BILIRUBIN,TOTAL 0.4 MG/DL (0.2-1.0); BLOOD UREA NITROGEN 34 MG/DL (7-18); CALCIUM LEVEL 9.4 MG/DL (8.5-10.1); CARBON DIOXIDE LEVEL 24 MEQ/L (21-32); CHLORIDE LEVEL 110 MEQ/L (98-107); GLOMERULAR FILTRATION RATE > 60.0 (>60); GLUCOSE, FASTING 89 MG/DL (70-100); POTASSIUM SERUM 4.2 MEQ/L (3.5-5.1); SODIUM LEVEL 141 MEQ/L (136-145); TOTAL PROTEIN 7.3 GM/DL (6.4-8.2)
== END ==
LOC: M LAB 16:08
PROVIDERS: ATTEND Physician Assistant
DX: L65.8 Other specified nonscarring hair loss (principal)

== ENCOUNTER → 2021-05-12 | Outpatient (CLI) | payer MEDICAID ==
[2021-05-12 13:30] LABS: HEMATOCRIT 40.1 % (36.0-47.0); HEMOGLOBIN 13.1 g/dl (12.0-15.5); MEAN CORPUSCULAR HEMOGLOBIN 28.8 pg (27.0-33.0); MEAN CORPUSCULAR HGB CONC 32.7 g/dl (32.0-36.5); MEAN CORPUSCULAR VOLUME 88.1 fl (80.0-96.0); PLATELET COUNT, AUTOMATED 267 10^3/uL (150-450); RED BLOOD COUNT 4.55 10^6/uL (4.00-5.40); WHITE BLOOD COUNT 6.3 10^3/uL (4.0-10.0)
[2021-05-12 14:13] LABS: ALBUMIN 3.9 GM/DL (3.2-5.2); ALT/SGPT 19 U/L (12-78); BILIRUBIN,TOTAL 0.4 MG/DL (0.2-1.0); BLOOD UREA NITROGEN 24 MG/DL (7-18); CALCIUM LEVEL 9.1 MG/DL (8.5-10.1); CARBON DIOXIDE LEVEL 26 MEQ/L (21-32); CHLORIDE LEVEL 110 MEQ/L (98-107); CREATININE FOR GFR 0.74 MG/DL (0.55-1.30); GLOMERULAR FILTRATION RATE > 60.0 (>60); GLUCOSE, FASTING 82 MG/DL (70-100); SODIUM LEVEL 141 MEQ/L (136-145); TOTAL PROTEIN 7.1 GM/DL (6.4-8.2)
== END ==
LOC: M LAB 13:06
PROVIDERS: ATTEND Physician Assistant
DX: L65.8 Other specified nonscarring hair loss (principal)

== ENCOUNTER → 2021-07-11 | Outpatient (CLI) | payer MEDICAID ==
[2021-07-11 12:44] LABS: THYROID STIMULATING HORMONE 3.8 uIU/ML (0.358-3.740)
[2021-07-12 12:45] LABS: THYROID PEROXIDASE ANTIBODY 77.4 U/ML (<60.0)
== END ==
LOC: M LAB 11:15
PROVIDERS: ATTEND Physician Assistant
DX: E03.9 Hypothyroidism, unspecified (principal)

== ENCOUNTER → 2021-10-24 | Outpatient (CLI) | payer MEDICAID | LOC: M RAD 06:51 | PROVIDERS: ATTEND Physician Assistant Surgical | DX: R10.11 Right upper quadrant pain (principal); R11.0 Nausea ==

== ENCOUNTER 2021-10-27 18:27 | Emergency (ER) | payer MEDICAID ==
[~2021-10-27] VITALS: Ht 157.5 cm; Wt 82.3 kg
[2021-10-27] MEDS ORDERED: EUTH25TA (18:50)
[2021-10-27] MEDS ORDERED: OMEP40CA5 (18:50)
[2021-10-27] MEDS ORDERED: MULTTAB61 PO (18:50)
[2021-10-27] MEDS ORDERED: KETOROLAC 60MG 2ML VIAL IM ONE (21:40)
[2021-10-27] MEDS ORDERED: KETOROLAC TROMETHAMINE 10 MG TAB PO ONE (21:40)
[2021-10-27 21:47] LABS: HEMATOCRIT 37.4 % (36.0-47.0); HEMOGLOBIN 12.2 g/dl (12.0-15.5); MEAN CORPUSCULAR HGB CONC 32.6 g/dl (32.0-36.5); MEAN CORPUSCULAR VOLUME 88.8 fl (80.0-96.0); PLATELET COUNT, AUTOMATED 251 10^3/uL (150-450); RED BLOOD COUNT 4.21 10^6/uL (4.00-5.40)
[2021-10-27 22:04] LABS: BLOOD UREA NITROGEN 20 MG/DL (7-18); CALCIUM LEVEL 8.6 MG/DL (8.5-10.1); CARBON DIOXIDE LEVEL 24 MEQ/L (21-32); CHLORIDE LEVEL 111 MEQ/L (98-107); CREATININE FOR GFR 0.72 MG/DL (0.55-1.30); GLOMERULAR FILTRATION RATE > 60.0 (>60); GLUCOSE, FASTING 87 MG/DL (70-100); MAGNESIUM LEVEL 2.2 MG/DL (1.8-2.4); POTASSIUM SERUM 3.7 MEQ/L (3.5-5.1); SODIUM LEVEL 142 MEQ/L (136-145)
[2021-10-27 22:15] LABS: ERYTHROCYTE SEDIMENTATION RATE 7 mm/hr (0-20)
[2021-10-27 22:53] VITALS: BP 126/82
== END 2021-10-27 22:54 | disposition home or self-care (01) ==
LOC: M ED 18:27
DX: R51.9 Headache, unspecified (principal); E66.9 Obesity, unspecified; J45.909 Unspecified asthma, uncomplicated; K21.9 Gastro-esophageal reflux disease without esophagitis; J30.2 Other seasonal allergic rhinitis; E03.9 Hypothyroidism, unspecified; Z98.84 Bariatric surgery status; Z79.3 Long term (current) use of hormonal contraceptives; Z82.3 Family history of stroke; Z79.899 Other long term (current) drug therapy
CPT/HCPCS: 70450; 80047; 80048; 83735; 84702; 85027; 85652; 86140; 96372; 99283; J1885

== ENCOUNTER → 2021-12-19 | Outpatient (CLI) | payer MEDICAID ==
[~2021-12-19] MED LIST changes: +EUTH25TA; +MULTTAB61 PO; +OMEP40CA5
== END ==
LOC: M RAD 06:23
PROVIDERS: ATTEND Physician Assistant Surgical
DX: R10.11 Right upper quadrant pain (principal); Z98.84 Bariatric surgery status
CPT/HCPCS: 78227; A9537

== ENCOUNTER 2022-03-08 01:16 | Emergency (ER) | payer MEDICAID ==
[~2022-03-08] VITALS: Ht 157.5 cm; Wt 81.8 kg
[2022-03-08 01:51] LABS: BASO # 0.1 10^3/uL (0.0-0.2); BASO % 0.8 % (0.0-1.0); EOS # 0.1 10^3/uL (0.0-0.5); EOS % 1.4 % (0.0-3.0); HEMATOCRIT 37.9 % (36.0-47.0); HEMOGLOBIN 12.2 g/dl (12.0-15.5); LYMPH # 1.7 10^3/uL (1.5-5.0); LYMPH % 26.5 % (24.0-44.0); MEAN CORPUSCULAR HEMOGLOBIN 28.3 pg (27.0-33.0); MEAN CORPUSCULAR HGB CONC 32.2 g/dl (32.0-36.5); MEAN CORPUSCULAR VOLUME 87.9 fl (80.0-96.0); MONO # 0.5 10^3/uL (0.0-0.8); MONO % 7.9 % (2.0-8.0); NEUTROPHILS % 63.2 % (36.0-66.0); PLATELET COUNT, AUTOMATED 300 10^3/uL (150-450); RED BLOOD COUNT 4.31 10^6/uL (4.00-5.40); WHITE BLOOD COUNT 6.4 10^3/uL (4.0-10.0)
[2022-03-08 02:29] LABS: CK-MB VALUE MASS < 1.0 NG/ML (<3.6); CPK CREATINE PHOSPHOKINASE 34 U/L (26-192); MB/CK RELATIVE INDEX 2.94 (< OR =4)
[2022-03-08 02:45] LABS: BLOOD UREA NITROGEN 20 MG/DL (7-18); CARBON DIOXIDE LEVEL 24 MEQ/L (21-32); CHLORIDE LEVEL 107 MEQ/L (98-107); CREATININE FOR GFR 0.68 MG/DL (0.55-1.30); FREE T4 1.09 NG/DL (0.76-1.46); GLOMERULAR FILTRATION RATE > 60.0 (>60); GLUCOSE, FASTING 91 MG/DL (70-100); POTASSIUM SERUM 4.2 MEQ/L (3.5-5.1); SODIUM LEVEL 138 MEQ/L (136-145)
[2022-03-08 04:21] LABS: ALBUMIN 3.8 GM/DL (3.2-5.2); ALT/SGPT 17 U/L (12-78); BILIRUBIN,DIRECT 0.1 MG/DL (0.0-0.2); BILIRUBIN,TOTAL 0.7 MG/DL (0.2-1.0); TOTAL PROTEIN 6.9 GM/DL (6.4-8.2)
[2022-03-08 05:00] VITALS: BP 137/81
== END 2022-03-08 06:57 | disposition home or self-care (01) ==
LOC: M ED 01:16
DX: R10.13 Epigastric pain (principal); K21.9 Gastro-esophageal reflux disease without esophagitis; J45.909 Unspecified asthma, uncomplicated; E03.9 Hypothyroidism, unspecified; Z98.84 Bariatric surgery status; J30.2 Other seasonal allergic rhinitis; Z79.899 Other long term (current) drug therapy; Z79.890 Hormone replacement therapy

== ENCOUNTER → 2022-03-28 | Outpatient (CLI) | payer MEDICAID ==
[~2022-03-28] MED LIST changes: +TRAM50TA2 PO
[2022-03-28 13:15] LABS: HCG, SERUM QUALITATIVE POSITIVE (NEGATIVE)
== END ==
LOC: M LAB 10:51
PROVIDERS: ATTEND Advanced Practice Midwife
DX: N92.6 Irregular menstruation, unspecified (principal)

== ENCOUNTER 2022-04-02 13:42 | Emergency (ER) | payer MEDICAID ==
[~2022-04-02] VITALS: Ht 157.5 cm; Wt 81.8 kg
[2022-04-02 13:42] VITALS: BP 126/82
[~2022-04-02 13:42] MED LIST changes: -TRAM50TA2 PO
[2022-04-02 14:44] LABS: BASO % 0.6 % (0.0-1.0); EOS # 0.1 10^3/uL (0.0-0.5); EOS % 1.3 % (0.0-3.0); HEMOGLOBIN 12.2 g/dl (12.0-15.5); LYMPH # 1.7 10^3/uL (1.5-5.0); LYMPH % 24.4 % (24.0-44.0); MEAN CORPUSCULAR HEMOGLOBIN 28.4 pg (27.0-33.0); MEAN CORPUSCULAR HGB CONC 32.1 g/dl (32.0-36.5); MEAN CORPUSCULAR VOLUME 88.4 fl (80.0-96.0); MONO # 0.6 10^3/uL (0.0-0.8); MONO % 8.5 % (2.0-8.0); NEUTROPHILS # 4.6 10^3/uL (1.5-8.5); NEUTROPHILS % 64.9 % (36.0-66.0); PLATELET COUNT, AUTOMATED 327 10^3/uL (150-450); WHITE BLOOD COUNT 7.1 10^3/uL (4.0-10.0)
[2022-04-02] MEDS ORDERED: TRAM50TA2 PO (16:54)
[2022-04-02] MEDS ORDERED: traMADol 50 MG TAB PO ONE (16:55)
== END 2022-04-02 17:23 | disposition home or self-care (01) ==
LOC: M ED 13:42
DX: O03.9 Complete or unspecified spontaneous abortion without complication (principal); E03.9 Hypothyroidism, unspecified; K21.9 Gastro-esophageal reflux disease without esophagitis; Z98.84 Bariatric surgery status; J30.2 Other seasonal allergic rhinitis; Z79.890 Hormone replacement therapy; Z79.899 Other long term (current) drug therapy

== ENCOUNTER → 2022-04-07 | Outpatient (CLI) | payer MEDICAID ==
[~2022-04-07] MED LIST changes: +TRAM50TA2 PO
== END ==
LOC: M PLALAB 10:22
PROVIDERS: ATTEND Advanced Practice Midwife
DX: O03.9 Complete or unspecified spontaneous abortion without complication (principal)

== ENCOUNTER → 2022-04-14 | Outpatient (CLI) | payer MEDICAID | LOC: M PLALAB 11:01 | PROVIDERS: ATTEND Advanced Practice Midwife | DX: O03.9 Complete or unspecified spontaneous abortion without complication (principal) ==

== ENCOUNTER 2022-06-26 21:22 | Emergency (ER) | payer MEDICAID ==
[~2022-06-26] VITALS: Ht 157.5 cm; Wt 82.7 kg
[2022-06-26 21:23] VITALS: BP 113/78
[2022-06-26] MEDS ORDERED: ACET-907 PO (21:29)
== END 2022-06-26 22:27 | disposition left against medical advice (07) ==
LOC: M ED 21:22
DX: Z53.21 Procedure and treatment not carried out due to patient leaving prior to being seen by health care provider (principal)

== ENCOUNTER → 2022-07-31 | Outpatient (CLI) | payer MEDICAID ==
[~2022-07-31] MED LIST changes: +ACET-907 PO
== END ==
LOC: M PLALAB 11:36
PROVIDERS: ATTEND Advanced Practice Midwife
DX: Z34.90 Encounter for supervision of normal pregnancy, unspecified, unspecified trimester (principal)

== ENCOUNTER → 2022-08-02 | Outpatient (CLI) | payer MEDICAID | LOC: M PLALAB 11:31 | PROVIDERS: ATTEND Advanced Practice Midwife | DX: Z34.90 Encounter for supervision of normal pregnancy, unspecified, unspecified trimester (principal) ==

== ENCOUNTER → 2022-08-22 | Outpatient (CLI) | payer MEDICAID ==
[2022-08-22 15:13] LABS: HEMATOCRIT 36.6 % (36.0-47.0); HEMOGLOBIN 11.2 g/dl (12.0-15.5); MEAN CORPUSCULAR HEMOGLOBIN 27.3 pg (27.0-33.0); MEAN CORPUSCULAR HGB CONC 30.6 g/dl (32.0-36.5); MEAN CORPUSCULAR VOLUME 89.1 fl (80.0-96.0); PLATELET COUNT, AUTOMATED 215 10^3/uL (150-450); RED BLOOD COUNT 4.11 10^6/uL (4.00-5.40); WHITE BLOOD COUNT 7.3 10^3/uL (4.0-10.0)
[2022-08-22 16:32] LABS: HIV 1&2 SCREEN ATELLICA NEGATIVE (NEGATIVE)
[2022-08-22 16:36] LABS: GC DNA AMPLIFICATION NEGATIVE (NEGATIVE)
== END ==
LOC: M PLALAB 11:31
PROVIDERS: ATTEND Specialist
DX: Z34.81 Encounter for supervision of other normal pregnancy, first trimester (principal)

== ENCOUNTER → 2022-09-01 | Outpatient (CLI) | payer MEDICAID | LOC: M LAB 11:40 | PROVIDERS: ATTEND Family Medicine | DX: E03.9 Hypothyroidism, unspecified (principal) ==

== ENCOUNTER 2022-10-09 07:27 | Day surgery (SDC) | payer MEDICAID ==
[~2022-10-09] VITALS: Ht 157.5 cm; Wt 80.6 kg
[~2022-10-09 07:27] MED LIST changes: +B-12100010 PO; -EUTH25TA; +EUTH25TA PO; +LIDOCAINE 1% SDV 30ML VIAL As Ordered ONE
[2022-10-09] MEDS ORDERED: LR 1,000 ML IV SCH ×2 (07:55→13:05)
[2022-10-09 07:59] LABS: HEMATOCRIT 37.1 % (36.0-47.0); HEMOGLOBIN 12.3 g/dl (12.0-15.5); MEAN CORPUSCULAR HEMOGLOBIN 28.7 pg (27.0-33.0); MEAN CORPUSCULAR HGB CONC 33.2 g/dl (32.0-36.5); MEAN CORPUSCULAR VOLUME 86.5 fl (80.0-96.0); PLATELET COUNT, AUTOMATED 275 10^3/uL (150-450); RED BLOOD COUNT 4.29 10^6/uL (4.00-5.40); WHITE BLOOD COUNT 7.7 10^3/uL (4.0-10.0)
[2022-10-09] MEDS ORDERED: CHLOROPROCAINE PRES. FREE 3% 20ML VIAL As Ordered ONE (12:55)
[2022-10-09] MEDS ORDERED: oxyCODONE 5MG TAB PO PRN (13:05)
[2022-10-09] MEDS ORDERED: ONDANSETRON 4MG 2ML VIAL IV PRN (13:05)
[2022-10-09] MEDS ORDERED: fentaNYL 100 MCG/2 ML INJECTION IV PRN (13:05)
[2022-10-09] MEDS ORDERED: HYDROMORPHONE HCL 0.5 MG/ 0.5 ML SYRINGE IV PRN (13:05)
[2022-10-09 16:12] VITALS: BP 98/47
[2022-10-09] MEDS ORDERED: ACET-907 PO (19:23)
== END 2022-10-09 16:26 | disposition home or self-care (01) ==
LOC: M SDC 07:27
PROVIDERS: ATTEND Specialist
DX: O34.32 Maternal care for cervical incompetence, second trimester (principal); J30.2 Other seasonal allergic rhinitis; R51.9 Headache, unspecified; Z79.899 Other long term (current) drug therapy; E03.9 Hypothyroidism, unspecified; F41.9 Anxiety disorder, unspecified; F32.A Depression, unspecified; Z87.891 Personal history of nicotine dependence
CPT/HCPCS: 36415; 59320; 85027; J2401

== ENCOUNTER → 2022-11-20 | Outpatient (CLI) | payer MEDICAID ==
[~2022-11-20] MED LIST changes: -LIDOCAINE 1% SDV 30ML VIAL As Ordered ONE
== END ==
LOC: M WHC 10:22
PROVIDERS: ATTEND Specialist
DX: Z34.82 Encounter for supervision of other normal pregnancy, second trimester (principal); Z3A.20 20 weeks gestation of pregnancy

== ENCOUNTER → 2022-12-08 | Outpatient (CLI) | payer MEDICAID | LOC: M WHC 09:05 | PROVIDERS: ATTEND Advanced Practice Midwife | DX: Z34.82 Encounter for supervision of other normal pregnancy, second trimester (principal) ==

== ENCOUNTER 2022-12-09 20:06 | Outpatient (CLI) | payer MEDICAID ==
[~2022-12-09] VITALS: Ht 157.5 cm; Wt 84.3 kg
[2022-12-09 20:24] VITALS: BP 114/71; O2SAT 100
[2022-12-09] MEDS ORDERED: HOME MED LIST COMPLETE! XX SCH (20:40)
[2022-12-09 22:10] LABS: APPEARANCE, URINE HAZY (CLEAR); BACTERIA, URINE AUTO NEGATIVE (NEGATIVE); BILIRUBIN, URINE AUTO NEGATIVE (NEGATIVE); BLOOD, URINE BLOOD 1+ (NEGATIVE); COLOR, URINE YELLOW (YELLOW); GLUCOSE, URINE (UA) AUTO NEGATIVE (NEGATIVE); KETONE, URINE AUTO TRACE mg/dL (NEGATIVE); LEUKOCYTE ESTERASE, URINE AUTO 2+ (NEGATIVE); MUCUS, URINE SMALL (NEGATIVE); NITRITE, URINE AUTO NEGATIVE (NEGATIVE); PROTEIN, URINE AUTO NEGATIVE (NEGATIVE); RBC, URINE AUTO 1 /HPF (0-3); SPECIFIC GRAVITY URINE AUTO 1.034 (1.002-1.035); SQUAMOUS EPITHELIAL CELL UR AU 18 /HPF (0-6); WBC, URINE AUTO 16 /HPF (0-3)
[2022-12-09 22:38] VITALS: BP 88/51
[2022-12-09 22:39] VITALS: BP 95/60
== END 2022-12-09 22:47 | disposition home or self-care (01) ==
LOC: M LDO 20:06
PROVIDERS: ATTEND Obstetrics & Gynecology
DX: O26.852 Spotting complicating pregnancy, second trimester (principal); O34.32 Maternal care for cervical incompetence, second trimester; O99.842 Bariatric surgery status complicating pregnancy, second trimester; Z3A.22 22 weeks gestation of pregnancy
CPT/HCPCS: 59025; 81001; 87086; G0463

== ENCOUNTER → 2023-01-01 | Outpatient (CLI) | payer MEDICAID ==
[2023-01-01 18:13] LABS: HEMATOCRIT 32.6 % (36.0-47.0); HEMOGLOBIN 10.3 g/dl (12.0-15.5); MEAN CORPUSCULAR HEMOGLOBIN 29.2 pg (27.0-33.0); MEAN CORPUSCULAR HGB CONC 31.6 g/dl (32.0-36.5); MEAN CORPUSCULAR VOLUME 92.4 fl (80.0-96.0); PLATELET COUNT, AUTOMATED 366 10^3/uL (150-450); RED BLOOD COUNT 3.53 10^6/uL (4.00-5.40); WHITE BLOOD COUNT 7.9 10^3/uL (4.0-10.0)
[2023-01-01 19:06] LABS: GC DNA AMPLIFICATION NEGATIVE (NEGATIVE)
== END ==
LOC: M PLALAB 16:19
PROVIDERS: ATTEND Specialist
DX: Z34.82 Encounter for supervision of other normal pregnancy, second trimester (principal)

== ENCOUNTER → 2023-01-12 | Outpatient (CLI) | payer MEDICAID | LOC: M WHC 14:38 | PROVIDERS: ATTEND Specialist | DX: Z34.82 Encounter for supervision of other normal pregnancy, second trimester (principal); Z3A.27 27 weeks gestation of pregnancy ==

== ENCOUNTER → 2023-01-25 | Outpatient (CLI) | payer MEDICAID | LOC: M WHC 14:15 | PROVIDERS: ATTEND Obstetrics & Gynecology | DX: O36.5933 Maternal care for other known or suspected poor fetal growth, third trimester, fetus 3 (principal); Z3A.29 29 weeks gestation of pregnancy ==

== ENCOUNTER → 2023-02-08 | Outpatient (CLI) | payer MEDICAID | LOC: M WHC 14:21 | PROVIDERS: ATTEND Obstetrics & Gynecology | DX: O36.5930 Maternal care for other known or suspected poor fetal growth, third trimester, not applicable or unspecified (principal); Z3A.31 31 weeks gestation of pregnancy ==

== ENCOUNTER 2023-03-23 07:34 | Inpatient (IN) | payer MEDICAID ==
[2023-03-23] VITALS (15 sets, daily range): BP systolic 109–149; BP diastolic 56–92; O2SAT 99
[~2023-03-23] VITALS: Ht 157.5 cm; Wt 90.0 kg
[2023-03-23] MEDS ORDERED: LEVO25CA PO (07:59)
[2023-03-23] MEDS ORDERED: TRANEXAMIC ACID INJection 1,000 MG in NS 100 ML IV PRN (08:00)
[2023-03-23] MEDS ORDERED: LIDOCAINE 1% MDV 20ML VIAL INFIL PRN (08:00)
[2023-03-23] MEDS ORDERED: CARBOPROST TROMETHAMINE 250 MCG/ML AMP IM PRN (08:00)
[2023-03-23] MEDS ORDERED: METHYLERGONOVINE MALEATE 0.2MG/ML 1ML VIAL IM PRN (08:00)
[2023-03-23] MEDS ORDERED: OXYTOCIN DRIP 30 UNITS in IV 1 EA IV PRN (08:00)
[2023-03-23] MEDS: LR 1,000 ML IV SCH ×2 (08:24→16:43)
[2023-03-23 08:33] LABS: HEMATOCRIT 29.7 % (36.0-47.0); HEMOGLOBIN 9.3 g/dl (12.0-15.5); MEAN CORPUSCULAR HEMOGLOBIN 25.6 pg (27.0-33.0); MEAN CORPUSCULAR HGB CONC 31.3 g/dl (32.0-36.5); MEAN CORPUSCULAR VOLUME 81.8 fl (80.0-96.0); PLATELET COUNT, AUTOMATED 284 10^3/uL (150-450); RED BLOOD COUNT 3.63 10^6/uL (4.00-5.40); WHITE BLOOD COUNT 7.7 10^3/uL (4.0-10.0)
[2023-03-23] MEDS: miSOPROStol 50MCG 1/2 TABLET PO SCH ×2 (09:44→13:00)
[2023-03-23] MEDS ORDERED: FENTANYL/ROPIVACAINE/NACL BAG 100 ML EPIDURAL SCH (15:00)
[2023-03-23] MEDS ORDERED: LR 500 ML IV PRN (15:00)
[2023-03-23] MEDS ORDERED: NALOXONE INJ 0.4MG/1ML VIAL IV PRN (15:00)
[2023-03-23] MEDS ORDERED: ePHEDrine SULFATE 25 MG/5 ML(5MG/ML) SYRINGE IVP PRN (15:00)
[2023-03-23] MEDS ORDERED: EPIDURAL/PCA KEYS XX PRN (15:00)
[2023-03-23] MEDS ORDERED: diphenhydrAMINE 50MG/ML VIAL IV PRN (15:00)
[2023-03-23] MEDS ORDERED: ONDANSETRON 4MG 2ML VIAL IV PRN (15:00)
[2023-03-23] MEDS ORDERED: PENICILLIN G POTASSIUM 5 MU IV 5 MU in D5W MINI-BAG PLUS 100 ML IV ONE (15:35)
[2023-03-23] MEDS ORDERED: RHOGAM 300MCG (1500IU) INJ IM SCH (18:00)
[2023-03-23] MEDS ORDERED: MOM 30ML SUSPENSION UDC PO PRN (18:00)
[2023-03-23] MEDS ORDERED: DIBUCAINE 1% OINTMENT 30GM TOP PRN (18:00)
[2023-03-23] MEDS ORDERED: METHYLERGONOVINE MALEATE 0.2 MG TAB PO PRN (18:00)
[2023-03-23] MEDS ORDERED: ACETAMINOPHEN 500 MG TAB PO PRN (18:00)
[2023-03-23] MEDS: DOCUSATE SODIUM 100MG CAPSULE PO SCH (21:13)
[2023-03-24] MEDS: ACETAMINOPHEN TAB 650MG DOSE (2X325MG) PO PRN ×2 (00:45→06:35)
[2023-03-24 06:00] VITALS: BP 111/71; O2SAT 99
[2023-03-24] MEDS: LEVOTHYROXINE 25MCG TABLET (0.025MG) PO SCH (06:34)
[2023-03-24] MEDS: DOCUSATE SODIUM 100MG CAPSULE PO SCH ×2 (09:00→20:21)
[2023-03-24] MEDS: PRENATAL VITAMINS CHEWABLE TABLET PO SCH (09:00)
[2023-03-24 18:00] VITALS: BP 123/82; O2SAT 100
[2023-03-25] MEDS ORDERED: OMEPRAZOLE 20MG CAP PO ONE (03:00)
[2023-03-25 05:39] VITALS: BP 100/52; O2SAT 98
[2023-03-25] MEDS: LEVOTHYROXINE 25MCG TABLET (0.025MG) PO SCH (05:50)
[2023-03-25] MEDS: PRENATAL VITAMINS CHEWABLE TABLET PO SCH (09:00)
[2023-03-25] MEDS: DOCUSATE SODIUM 100MG CAPSULE PO SCH (09:00)
[2023-03-25] MEDS ORDERED: MEASLES,MUMPS,RUBELLA VACCINE INJ (MMR-II) SC.IMMUN ONE (09:00)
[2023-03-25] MEDS ORDERED: ACET-683 PO (09:54)
== END 2023-03-25 19:01 | disposition home or self-care (01) | DRG 560 ==
LOC: M LDI 07:34 → M OBS 19:20
PROVIDERS: ADMIT Advanced Practice Midwife; ATTEND Advanced Practice Midwife
PROC: 10E0XZZ Delivery of Products of Conception, External Approach (ICD-10-PCS; principal; 2023-03-23)
PROC: 3E0P7VZ Introduction of Hormone into Female Reproductive, Via Natural or Artificial Opening (ICD-10-PCS; 2023-03-23)
PROC: 10907ZC Drainage of Amniotic Fluid, Therapeutic from Products of Conception, Via Natural or Artificial Opening (ICD-10-PCS; 2023-03-23)
PROC: 0HQ9XZZ Repair Perineum Skin, External Approach (ICD-10-PCS; 2023-03-23)
DX: O36.5930 Maternal care for other known or suspected poor fetal growth, third trimester, not applicable or unspecified (principal); O34.31 Maternal care for cervical incompetence, first trimester; Z37.0 Single live birth; Z3A.37 37 weeks gestation of pregnancy; O32.6XX0 Maternal care for compound presentation, not applicable or unspecified; O70.0 First degree perineal laceration during delivery

== ENCOUNTER → 2023-12-07 | Outpatient (REF) | payer MEDICAID ==
[~2023-12-07] MED LIST changes: +ACET-683 PO; +LEVO25CA PO
== END ==
LOC: M SFHCWAGY 15:03
PROVIDERS: ATTEND Specialist
DX: Z12.4 Encounter for screening for malignant neoplasm of cervix (principal)

== ENCOUNTER → 2024-01-22 | Outpatient (CLI) | payer OTHER ==
[2024-01-22 15:32] LABS: HEMATOCRIT 30.6 % (36.0-47.0); HEMOGLOBIN 8.7 g/dl (12.0-15.5); MEAN CORPUSCULAR HEMOGLOBIN 21.4 pg (27.0-33.0); MEAN CORPUSCULAR HGB CONC 28.4 g/dl (32.0-36.5); MEAN CORPUSCULAR VOLUME 75.2 fl (80.0-96.0); PLATELET COUNT, AUTOMATED 338 10^3/uL (150-450); RED BLOOD COUNT 4.07 10^6/uL (4.00-5.40); WHITE BLOOD COUNT 7.6 10^3/uL (4.0-10.0)
[2024-01-22 16:28] LABS: HIV 1&2 SCREEN NEGATIVE (NEGATIVE)
[2024-01-22 16:37] LABS: HEPATITIS C VIRUS ABY INDEX < 0.02 INDEX (<0.8)
[2024-01-22 16:58] LABS: GC DNA AMPLIFICATION NEGATIVE (NEGATIVE)
== END ==
LOC: M PLALAB 12:28
PROVIDERS: ATTEND Specialist
DX: Z34.81 Encounter for supervision of other normal pregnancy, first trimester (principal)

== ENCOUNTER 2024-03-13 06:08 | Day surgery (SDC) | payer OTHER ==
[~2024-03-13] VITALS: Ht 157.5 cm; Wt 89.2 kg
[2024-03-13] VITALS (7 sets, daily range): BP systolic 103–121; BP diastolic 58–64; TEMP 98.3; O2SAT 100
[~2024-03-13 06:08] MED LIST changes: +UNRESOLVED CLARIFICATION ENTRY XX SCH
[2024-03-13] MEDS ORDERED: LR 1,000 ML IV SCH (06:20)
[2024-03-13] MEDS ORDERED: propofoL 200 MG/20 ML VIAL As Ordered ONE (06:31)
[2024-03-13] MEDS ORDERED: LIDOCAINE 2% 100MG/5ML SDV (FOR ANES.) As Ordered ONE (06:31)
[2024-03-13] MEDS ORDERED: ROCURONIUM BROMIDE 50MG/5ML VIAL As Ordered ONE (06:32)
[2024-03-13] MEDS ORDERED: GLYCOPYRROLATE INJ 0.2 MG/ML 2 ML VIAL As Ordered ONE (06:32)
[2024-03-13] MEDS ORDERED: ONDANSETRON 4MG 2ML VIAL As Ordered ONE (06:33)
[2024-03-13] MEDS ORDERED: KETOROLAC 60MG 2ML VIAL As Ordered ONE (06:33)
[2024-03-13] MEDS ORDERED: fentaNYL 100 MCG/2 ML INJECTION As Ordered ONE (06:34)
[2024-03-13 06:44] LABS: HEMATOCRIT 30.7 % (36.0-47.0); MEAN CORPUSCULAR HEMOGLOBIN 21.3 pg (27.0-33.0); MEAN CORPUSCULAR HGB CONC 29.3 g/dl (32.0-36.5); MEAN CORPUSCULAR VOLUME 72.6 fl (80.0-96.0); PLATELET COUNT, AUTOMATED 317 10^3/uL (150-450); RED BLOOD COUNT 4.23 10^6/uL (4.00-5.40)
[2024-03-13] MEDS: LIDOCAINE 1% SDV 30ML VIAL As Ordered ONE (08:10)
[2024-03-13] MEDS ORDERED: ONDANSETRON 4MG 2ML VIAL IV PRN (08:20)
[2024-03-13] MEDS ORDERED: MORPHINE 2 MG/ML 1ML VIAL IV PRN (08:20)
[2024-03-13] MEDS ORDERED: oxyCODONE 5MG TAB PO PRN (08:20)
[2024-03-13] MEDS ORDERED: fentaNYL 100 MCG/2 ML INJECTION IV PRN (08:20)
[2024-03-13] MEDS ORDERED: IRON SUCROSE 100MG 5ML VIAL IV ONE (09:30)
[2024-03-13] MEDS: IRON SUCROSE 200 MG in NS 100 ML IV ONE (10:37)
[2024-03-13] MEDS ORDERED: ONDANSETRON 4MG 2ML VIAL IV SCH (11:00)
== END 2024-03-13 12:15 | disposition home or self-care (01) ==
LOC: M SDC 06:08 → M LDI 09:06 → M SDC 12:15
PROVIDERS: ATTEND Specialist
DX: O34.31 Maternal care for cervical incompetence, first trimester (principal); Z3A.13 13 weeks gestation of pregnancy
CPT/HCPCS: 36415; 59320; 76815; 85027; J1100; J1596; J1756; J2405; J3010

== ENCOUNTER → 2024-03-26 | Outpatient (CLI) | payer OTHER ==
[~2024-03-26] MED LIST changes: -UNRESOLVED CLARIFICATION ENTRY XX SCH
== END ==
LOC: M PLALAB 11:06
PROVIDERS: ATTEND Specialist
DX: Z34.91 Encounter for supervision of normal pregnancy, unspecified, first trimester (principal)

== ENCOUNTER → 2024-04-15 | Outpatient (CLI) | payer OTHER | LOC: M WHC 07:20 | PROVIDERS: ATTEND Specialist | DX: Z34.82 Encounter for supervision of other normal pregnancy, second trimester (principal); Z3A.18 18 weeks gestation of pregnancy ==

== ENCOUNTER 2024-05-28 11:55 | Outpatient (CLI) | payer OTHER ==
[~2024-05-28] VITALS: Ht 157.5 cm; Wt 92.1 kg
[2024-05-28 12:15] VITALS: BP 109/60
[2024-05-28] MEDS ORDERED: HOME MED LIST COMPLETE! XX SCH (12:20)
[2024-05-28 14:34] VITALS: BP 114/59
== END 2024-05-28 14:50 | disposition home or self-care (01) ==
LOC: M LDO 11:55
PROVIDERS: ATTEND Advanced Practice Midwife
DX: O26.852 Spotting complicating pregnancy, second trimester (principal); O34.32 Maternal care for cervical incompetence, second trimester; O09.212 Supervision of pregnancy with history of pre-term labor, second trimester; O09.292 Supervision of pregnancy with other poor reproductive or obstetric history, second trimester; O99.282 Endocrine, nutritional and metabolic diseases complicating pregnancy, second trimester; O99.842 Bariatric surgery status complicating pregnancy, second trimester; O99.012 Anemia complicating pregnancy, second trimester; E03.9 Hypothyroidism, unspecified; D50.9 Iron deficiency anemia, unspecified; Z3A.24 24 weeks gestation of pregnancy
CPT/HCPCS: 59025; 76816; 76817; G0463

== ENCOUNTER → 2024-06-10 | Outpatient (CLI) | payer OTHER ==
[2024-06-10 18:11] LABS: GLUCOSE,RANDOM 76 MG/DL (LESS THAN 200)
[2024-06-10 18:14] LABS: HEMATOCRIT 27.5 % (36.0-47.0); HEMOGLOBIN 8.1 g/dl (12.0-15.5); MEAN CORPUSCULAR HEMOGLOBIN 22.9 pg (27.0-33.0); MEAN CORPUSCULAR HGB CONC 29.5 g/dl (32.0-36.5); MEAN CORPUSCULAR VOLUME 77.9 fl (80.0-96.0); PLATELET COUNT, AUTOMATED 323 10^3/uL (150-450); RED BLOOD COUNT 3.53 10^6/uL (4.00-5.40); WHITE BLOOD COUNT 8.2 10^3/uL (4.0-10.0)
[2024-06-10 18:25] LABS: HEMOGLOBIN A1c 5.2 % (4.0-6.0)
[2024-06-10 18:41] LABS: HIV 1&2 SCREEN NEGATIVE (NEGATIVE)
[2024-06-10 18:49] LABS: HEPATITIS C VIRUS ABY INDEX 0.15 INDEX (<0.8)
== END ==
LOC: M PLALAB 14:18
PROVIDERS: ATTEND Specialist
DX: Z34.82 Encounter for supervision of other normal pregnancy, second trimester (principal)

== ENCOUNTER 2024-07-17 17:17 | Outpatient (CLI) | payer OTHER ==
[~2024-07-17] VITALS: Ht 157.5 cm; Wt 93.1 kg
[2024-07-17] MEDS ORDERED: HOME MED LIST COMPLETE! XX SCH (17:45)
[2024-07-17 17:49] VITALS: BP 98/57; O2SAT 99
[2024-07-19 09:38] LABS: Candida species NOT DETECTED (NOT DETECTED); Gardnerella vaginalis NOT DETECTED (NOT DETECTED); Trichamonas vaginalis NOT DETECTED (NOT DETECTED)
== END 2024-07-17 19:43 | disposition home or self-care (01) ==
LOC: M LDO 17:17
PROVIDERS: ATTEND Obstetrics & Gynecology
DX: O26.893 Other specified pregnancy related conditions, third trimester (principal); O99.013 Anemia complicating pregnancy, third trimester; O99.843 Bariatric surgery status complicating pregnancy, third trimester; O09.293 Supervision of pregnancy with other poor reproductive or obstetric history, third trimester; O09.213 Supervision of pregnancy with history of pre-term labor, third trimester; R10.2 Pelvic and perineal pain; D50.9 Iron deficiency anemia, unspecified; Z3A.31 31 weeks gestation of pregnancy
CPT/HCPCS: 59025; 76815; 76817; 87480; 87510; 87660; G0463

== ENCOUNTER 2024-08-05 09:21 | Outpatient (CLI) | payer OTHER ==
[~2024-08-05] VITALS: Ht 157.5 cm; Wt 92.8 kg
[2024-08-05 10:09] VITALS: BP 108/65; TEMP 97.8
[2024-08-05 10:52] VITALS: BP 109/65
[2024-08-05 11:36] VITALS: BP 119/72; TEMP 98.4
[2024-08-05] MEDS: IRON SUCROSE 100MG 5ML VIAL IV ONE (11:37)
[2024-08-05 12:12] VITALS: BP 115/66
[2024-08-05 12:48] VITALS: BP 117/56; TEMP 98.2
== END 2024-08-05 12:52 | disposition home or self-care (01) ==
LOC: M LDO 09:21
PROVIDERS: ATTEND Specialist
DX: O99.013 Anemia complicating pregnancy, third trimester (principal); O09.293 Supervision of pregnancy with other poor reproductive or obstetric history, third trimester; O09.213 Supervision of pregnancy with history of pre-term labor, third trimester; O99.843 Bariatric surgery status complicating pregnancy, third trimester; O34.33 Maternal care for cervical incompetence, third trimester; D50.8 Other iron deficiency anemias; Z3A.34 34 weeks gestation of pregnancy; Z79.899 Other long term (current) drug therapy; Z86.19 Personal history of other infectious and parasitic diseases
CPT/HCPCS: 59025; 76815; 96374; G0463; J1756

== ENCOUNTER 2024-08-18 10:32 | Inpatient (IN) | payer OTHER ==
[~2024-08-18] VITALS: Ht 157.5 cm; Wt 96.6 kg
[2024-08-18] VITALS (26 sets, daily range): BP systolic 99–156; BP diastolic 53–101
[2024-08-18] MEDS ORDERED: HOME MED LIST COMPLETE! XX SCH (11:00)
[2024-08-18] MEDS: BETAMETHASONE SOLUSPAN 6MG/ML 5ML VIAL IM SCH (11:43)
[2024-08-18] MEDS ORDERED: LIDOCAINE 1% MDV 20ML VIAL INFIL PRN (14:20)
[2024-08-18] MEDS ORDERED: OXYTOCIN DRIP 30 UNITS in IV 1 EA IV PRN (14:20)
[2024-08-18] MEDS ORDERED: TRANEXAMIC ACID INJection 1,000 MG in NS 100 ML IV PRN (14:20)
[2024-08-18] MEDS ORDERED: CARBOPROST TROMETHAMINE 250 MCG/ML AMP IM PRN (14:20)
[2024-08-18] MEDS ORDERED: OXYTOCIN INJ 10UNITS/ML 1ML VIAL IM PRN (14:20)
[2024-08-18] MEDS ORDERED: METHYLERGONOVINE MALEATE 0.2MG/ML 1ML VIAL IM PRN (14:20)
[2024-08-18 14:55] LABS: HEMATOCRIT 32.2 % (36.0-47.0); HEMOGLOBIN 8.9 g/dl (12.0-15.5); MEAN CORPUSCULAR HEMOGLOBIN 21.1 pg (27.0-33.0); MEAN CORPUSCULAR HGB CONC 27.6 g/dl (32.0-36.5); MEAN CORPUSCULAR VOLUME 76.3 fl (80.0-96.0); PLATELET COUNT, AUTOMATED 372 10^3/uL (150-450); RED BLOOD COUNT 4.22 10^6/uL (4.00-5.40); WHITE BLOOD COUNT 8.5 10^3/uL (4.0-10.0)
[2024-08-18 15:53] LABS: HIV 1&2 SCREEN NEGATIVE (NEGATIVE)
[2024-08-18 16:00] LABS: HEPATITIS C VIRUS ABY INDEX 0.02 INDEX (<0.8)
[2024-08-18] MEDS: ceFAZolin SODIUM 2 GM in DEXTROSE 5% (D5W) ADV/MINI-BAG 50 ML IV STA (18:07)
[2024-08-18] MEDS ORDERED: ONDANSETRON 4MG 2ML VIAL IV PRN (21:35)
[2024-08-18] MEDS ORDERED: NALOXONE INJ 0.4MG/1ML VIAL IV PRN (21:35)
[2024-08-18] MEDS ORDERED: EPIDURAL/PCA KEYS XX PRN (21:35)
[2024-08-18] MEDS ORDERED: diphenhydrAMINE 50MG/ML VIAL IV PRN (21:35)
[2024-08-18] MEDS: LACTATED RINGER'S 1000 ML IV STA (21:36)
[2024-08-18] MEDS ORDERED: FENTANYL 2MCG/ML ROPIVACAINE 0.2% IN 0.9% NACL 100ML IVBAG As Ordered ONE (21:39)
[2024-08-18] MEDS: FENTANYL/ROPIVACAINE/NACL BAG 100 ML EPIDURAL SCH (21:40)
[2024-08-18] MEDS: ePHEDrine SULFATE 25 MG/5 ML(5MG/ML) SYRINGE IVP PRN (22:46)
[2024-08-18] MEDS: LR 500 ML IV PRN (22:46)
[2024-08-18] MEDS: OXYTOCIN DRIP 30 UNITS in IV 1 EA IV SCH (23:59)
[2024-08-19] VITALS (16 sets, daily range): BP systolic 100–132; BP diastolic 52–77; O2SAT 98–100
[2024-08-19] MEDS ORDERED: ACETAMINOPHEN 325 MG TAB PO PRN (01:30)
[2024-08-19] MEDS ORDERED: IBUPROFEN 600MG TAB PO PRN (01:30)
[2024-08-19] MEDS ORDERED: IBUPROFEN 800 MG TAB PO PRN (01:30)
[2024-08-19] MEDS ORDERED: ANUSOL HC CREAM 30GM TOP PRN (01:30)
[2024-08-19] MEDS ORDERED: RHOGAM 300MCG (1500IU) INJ IM SCH (01:30)
[2024-08-19] MEDS ORDERED: ceFAZolin SOD 1 GM in DEXTROSE 5% (D5W) ADV/MINI-BAG 50 ML IV SCH (02:07)
[2024-08-19] MEDS: ACETAMINOPHEN 500 MG TAB PO PRN (04:06)
[2024-08-19] MEDS: DIBUCAINE 1% OINTMENT 30GM TOP PRN (04:06)
[2024-08-19] MEDS: PRENATAL VITAMINS CHEWABLE TABLET PO SCH (10:15)
[2024-08-19] MEDS: SIMETHICONE 80MG CHEW TAB PO PRN (14:14)
[2024-08-19] MEDS: MOM 30ML SUSPENSION UDC PO PRN (20:58)
[2024-08-19] MEDS: DOCUSATE SODIUM 100MG CAPSULE PO PRN (20:58)
[2024-08-20 05:30] VITALS: BP 98/57; O2SAT 100
[2024-08-21] MEDS ORDERED: MEASLES,MUMPS,RUBELLA VACCINE INJ (MMR-II) SC.IMMUN ONE (09:00)
== END 2024-08-20 16:10 | disposition home or self-care (01) | DRG 560 ==
LOC: M LDO 10:32 → M LDI 14:11 → M OBS 08-19 04:12
PROVIDERS: ADMIT Advanced Practice Midwife; ATTEND Advanced Practice Midwife
PROC: 10E0XZZ Delivery of Products of Conception, External Approach (ICD-10-PCS; principal; 2024-08-19)
DX: O34.30 Maternal care for cervical incompetence, unspecified trimester (principal); O60.14X0 Preterm labor third trimester with preterm delivery third trimester, not applicable or unspecified; O24.429 Gestational diabetes mellitus in childbirth, unspecified control; Z37.0 Single live birth; Z3A.36 36 weeks gestation of pregnancy; D64.9 Anemia, unspecified; O99.02 Anemia complicating childbirth; Z88.0 Allergy status to penicillin